=== PATIENT | male | born 1945 | race Caucasian/White ===

== ENCOUNTER → 2017-06-23 | Outpatient (CLI) | payer MEDICARE, BC ==
[2017-06-23 12:11] LABS: Basophils # (A) 0.1 k/uL (0-0.2); Basophils % (A) 1 %; Eosinophils # (A) 0.4 k/uL (0-0.7); Eosinophils % (A) 6 %; HCT 42.1 % (39.0-53.0); HGB 14.3 gm/dL (13.0-17.5); Lymphocytes # (A) 2.2 k/uL (1.0-4.8); Lymphocytes % (A) 35 %; MCH 29.9 pg (25.0-35.0); MCHC 33.9 g/dL (31.0-37.0); MCV 88.2 fL (80.0-100.0); Mean Platelet Volume 7.1; Monocytes # (A) 0.3 k/uL (0-1.0); Monocytes % (A) 5 %; Neutrophils # (A) 3.3 k/uL (1.3-7.7); Neutrophils % (A) 52 %; Platelet Count 259 k/uL (150-450); RBC 4.77 m/uL (4.30-5.90); RDW 13.1 % (11.5-15.5); WBC 6.4 k/uL (3.8-10.6)
[2017-06-23 12:18] LABS: Partial Thromboplastin Time 22.7 sec (22.0-30.0); Prothrombin Time 10.1 sec (9.0-12.0)
--- NOTE | 2017-06-23 12:24 | XR ---
EXAMINATION TYPE: XR chest 2V DATE OF EXAM: 06/23/2017 COMPARISON: NONE HISTORY: Preoperative for surgery. TECHNIQUE: Frontal and lateral views of the chest are obtained. FINDINGS: There is no focal air space opacity, pleural effusion, or pneumothorax seen. The cardiac silhouette size is within normal limits with atherosclerotic aorta. The osseous structures are inta ct. IMPRESSION: No acute pulmonary process.
[2017-06-23 12:43] LABS: Anion Gap 13 mmol/L; Appearance,Urine Clear (Clear); Bilirubin,Urine Negative (Negative); Blood Urea Nitrogen 21 mg/dL (9-20); Blood,Urine Negative (Negative); Calcium 9.7 mg/dL (8.4-10.2); Carbon Dioxide 29 mmol/L (22-30); Chloride 103 mmol/L (98-107); Color,Urine Yellow; Glucose 114 mg/dL (74-99); Glucose,Urine (UA) Negative (Negative); Ketones,Urine Negative (Negative); Leukocyte Esterase,Urine Negative (Negative); Nitrite,Urine Negative (Negative); Potassium 4.4 mmol/L (3.5-5.1); Protein,Urine Trace (Negative); Sodium 145 mmol/L (137-145); Specific Gravity,Urine 1.018 (1.001-1.035)
== END | disposition home or self-care (01) ==
LOC: LABPAT 11:36
PROVIDERS: ATTEND Orthopaedic Surgery Orthopaedic Surgery of the Spine
DX: Z01.818 Encounter for other preprocedural examination (principal); Z01.812 Encounter for preprocedural laboratory examination; M50.01 Cervical disc disorder with myelopathy, high cervical region
CPT/HCPCS: 36415; 71046; 80048; 81003; 85025; 85610; 85730; 86850; 86900; 86901

== ENCOUNTER 2017-07-02 10:52 | Inpatient (IN) | payer MEDICARE, BC ==
[2017-06-25 12:46] VITALS: BMI 33.6
[~2017-07-02 10:52] MED LIST: BACITRACIN 50,000 UNIT, POLYMYXIN B 500,000 UNIT in SODIUM CHLORIDE 0.9% IRRIGATIO 1,00... IRRIGATION ONE; DEXAMETHASONE SOD PHOSPHATE 10 MG/ML 1 ML VIAL IV ONE; HYDROmorphone 0.5 MG/0.5 ML SYRINGE IVP PRN; LIDOCAINE 1% 20 ML VIAL (10MG/ML) FOR IV START INTRADERMA PRN; MIDAZOLAM 2 MG/2 ML VIAL IV PRN; MORPHINE SULFATE 2 MG/ML SYRINGE IV PRN; ONDANSETRON 4 MG/2 ML VIAL IVP ONE; SCOPOLAMINE 1.5MG/72HR PATCH TRANSDERM ONE; ceFAZolin IN SWFI 2 GM/20 ML SYRINGE IVP ONE
[2017-07-02] MEDS: LACTATED RINGERS 1,000 ML IV SCH (11:59)
[2017-07-02 12:06] LABS: Glucose,Whole Blood 92 mg/dL (75-99)
[2017-07-02] MEDS ORDERED: GLYCOPYRROLATE 0.2 MG/ML 2 ML VIAL ONE (14:23)
[2017-07-02] MEDS ORDERED: MIDAZOLAM 2 MG/2 ML VIAL ONE (14:23)
[2017-07-02] MEDS ORDERED: ePHEDrine SULFATE/0.9% NACL/PF 50 MG/5 ML SYRINGE IV ONE (14:23)
[2017-07-02] MEDS ORDERED: DEXAMETHASONE SOD PHOS (MDV) 100 MG/10 ML VIAL ONE (14:23)
[2017-07-02] MEDS ORDERED: SUCCINYLCHOLINE CHLORIDE 100 MG/5 ML SYR IV ONE (14:23)
[2017-07-02] MEDS ORDERED: fentaNYL (PF) 50 MCG/ML 2 ML AMP ONE (14:23)
[2017-07-02] MEDS ORDERED: PROPOFOL 10 MG/ML 20 ML VIAL IV ONE (14:23)
[2017-07-02] MEDS ORDERED: LIDOCAINE 1% INJ 10MG/ML (20 ML MDV) ONE (14:23)
[2017-07-02] MEDS ORDERED: GELATIN SPONGE,ABSORB (LARGE) 1 EACH SPONGE MISCELLANE ONE (15:30)
[2017-07-02] MEDS ORDERED: BUPIVACAINE (PF) 0.25% 30 ML VIAL SQ ONE (15:31)
[2017-07-02] MEDS ORDERED: THROMBIN (BOVINE) 5,000 UNIT VIAL TOPICAL ONE (15:32)
--- NOTE | 2017-07-02 15:38 | XR ---
EXAMINATION TYPE: XR cervical spine 1V DATE OF EXAM: 07/02/2017 COMPARISON: NONE HISTORY: 72-year-old male needle placement in the OR TECHNIQUE: Single crosstable portable lateral view FINDINGS: The patient is intubated. Surgical instrument with needle projecting at the anterior C5-C6 disc inter space. IMPRESSION: Surgical needle at the anterior C5-C6 level.
--- NOTE | 2017-07-02 16:34 | XR ---
EXAMINATION TYPE: XR cervical spine 1V DATE OF EXAM: 07/02/2017 COMPARISON: Cervical spine x-ray earlier today. HISTORY: Hardware placement for neck surgery. TECHNIQUE: Portable crosstable lateral view of cervical spine is obtained intraoperatively. FINDINGS: There is partial visualization of the anterior fusion plate C5-C6 and likely extending to C 7 level. Inferior visualization suboptimal due to artifact from overlying shoulders. There is hyperde nse disc material C5-C6 level. Anterior endotracheal tube is partially imaged. IMPRESSION: As above.
[2017-07-02] MEDS ORDERED: HYDROmorphone 0.5 MG/0.5 ML SYRINGE IVP PRN (16:36)
[2017-07-02] MEDS ORDERED: DIAZEPAM 5 MG TAB PO PRN (16:36)
[2017-07-02] MEDS ORDERED: MAGNESIUM HYDROXIDE 2,400 MG/10 ML CUP PO PRN (16:36)
[2017-07-02] MEDS ORDERED: HYDROcodone/APAP 5-325MG 1 EACH TAB PO PRN (16:36)
[2017-07-02] MEDS ORDERED: ONDANSETRON 4 MG/2 ML VIAL IVP PRN (16:36)
[2017-07-02] MEDS ORDERED: BENZOCAINE/MENTHOL LOZENG 1 EACH LOZENGE MUCOUS MEM PRN (16:36)
--- NOTE | 2017-07-02 16:44 | P.OP ---
Date of Procedure: 07/02/17 Preoperative Diagnosis: Cervical myelopathy, myelomalacia, severe cervical stenosis C5 6 C6 7, severe degenerative disc disease C5 6 C6 7, cervical osteophytes, neck pain, left upper extremity radiculopathy, left upper extremity weakness, myeloradiculopathy Postoperative Diagnosis: Same Anesthesia: GETA Pathology: none sent Condition: stable Disposition: PACU Description of Procedure: BRIEF OPERATIVE NOTE Preoperative Diagnosis:Cervical myelopathy, myelomalacia, severe cervical stenosis C5 6 C6 7, severe degenerative disc disease C5 6 C6 7, cervical osteophytes, neck pain, left upper extremity radiculopathy, left upper extremity weakness, myeloradiculopathy Postoperative Diagnosis: Same Procedure: Anterior cervical decompression with discectomy and fusion C5 6 C6 7 Placement of interbody graft C5 6 C6 7 Application of anterior cervical plate C5 6 7 Removal of cervical osteophytes Surgeon: Dr. Perkins Book Sewer: Morro Ayoub is present throughout the entire the case persistence during positioning, dissection, exposure, visualization, and all crucial elements of the case as well as closure. Anesthesia: General anesthesia per Dr. Ervin Estimated blood loss: Approximately 50 mL Complications: None apparent Components implanted: K2M [place] anterior cervical plate system with Vikos interbody allograft bone graft and 1 mL of DBX bone putty Disposition: To recovery room in good stable condition. OPERATIVE INDICATIONS The patient has had long-standing issues in their neck and upper extremities. He is found have severe cervical stenosis with evidence of cervical myelopathy. His myelomalacia behind C5 6 and C6 7 with severe stenosis and degenerative disc disease which correlated well with his neck and upper extremity symptoms and his myelopathic symptoms. Patient was having worsening despite conservative treatment who is having increasing symptoms. The patient has been through conservative treatment. We discussed various treatment options including surgery, and the patient wishes to proceed with surgery We discussed the risk, patient's alternatives and benefits of surgery including but not limited to, risk of bleeding risk of infection, risk of need for further surgery , risk of decreased, loss of motion, muscle function, malunion nonunion, hardware failure, nerve damage, paralysis, heart attack, and . OPERATIVE SUMMARY After discussing all the risks, patient alternatives and benefits at length, the patient elected to proceed with surgical intervention, signed informed consent, and presented for their procedure. The patient was seen and examined in the preoperative holding area and the surgical site was marked. The patient was given antibiotics and brought to the operating room. The patient was positioned on the operating room table in a supine position being careful to pad any bony prominences and pressure points. The patient was sedated and intubated by anesthesia in standard fashion. Once the airway and C- spine were stabilized the patient's arms were padded and tucked at her side, with her shoulders gently taped. The head was placed in a donut pad with the neck in good neutral alignment and position. We were careful to maintain the patient's cervical spine and good neutral alignment and position throughout. The patient was prepped and draped in a normal standard fashion. An appropriate timeout and keystone protocol performed. We were able to proceed with the surgery. The local wound area was infiltrated with local anesthetic. An incision was made transversely approximately 2-1/2 cm over the appropriate levels at C6. Dissection was taken down subcutaneously to the level of the platysma which was split in line with its fibers. Dissection was taken with a carotid approach, with the trachea and esophagus medial and the carotid sheath laterally. We dissected down to the anterior surface of the vertebral bodies. Intraoperative x-ray was taken which showed a marker at the appropriate level at C5 6. With the appropriate level positively confirmed, we were able to proceed with discectomy at the appropriate levels at C5 6 and C6 7. All of the operative levels were exposed appropriately. The patient had all their twitches back, and there was no evidence of recurrent laryngeal issue. The wound was copiously irrigated and suctioned dry as had been done periodically throughout the case. At the appropriate level/levels, I established an annulotomy with an 11 blade scalpel. A complete discectomy was performed with a combination of pituitary rongeurs, curettes, a high-speed bur, and Kerrison rongeurs. The posterior longitudinal ligament was taken down as were any posterior osteophytes. Note was made of obvious severe stenosis centrally in the bilateral neural foramen. There were posterior osteophytes which had been taken down and significant disc protrusion and herniation which was removed as well. This gave good central and bilateral foraminal decompression. There is no evidence of any dural tear or leak. The endplates were prepared with a high- speed bur. With the endplates in good parallel position, I was able to size for the appropriate size interbody graft. The wound was irrigated and suctioned dry the graft was prepared and malleted into position. It had good alignment and position with the anterior surface flush with the anterior surface of the vertebral bodies. This was done similarly the appropriate levels first at C5 6 and then at C6 7. With the grafts intact, I was able to measure and contour and appropriate sized plate at C5 6 and 7. The plate was positioned at the midline over the appropriate levels. Screw holes were established with a hand drill and drill guide. Screws were placed in good alignment and position with excellent bony purchase. They were seated under the locking device. The construct was checked and found to be stable. Intraoperative x-ray was taken which showed good alignment and position of the implants at the appropriate levels of C5 6 and 7. There was no evidence of any dural tear or leak. Good hemostasis was maintained. The wound was copiously irrigated and suctioned dry as had been done periodically throughout the case. The platysma was closed with absorbable suture. The subcutaneous tissue was closed. The subcuticular tissue was closed with absorbable suture. The wound was cleaned and dried and dressed appropriately. A soft cervical collar was placed appropriately. The patient was woken up by anesthesia, extubated, transferred back gently to their hospital bed and brought to the recovery room in good stable condition. The patient will be admitted to the hospital for appropriate postoperative care , medical management and monitoring. Given that the patient's severe symptoms as well as his advanced age and myelopathic symptoms with some difficulty with his mobilization ambulation I think that he needs full admittance into the hospital overnight tonight. We will continue to follow them closely about the postoperative course.
[2017-07-02 21:41] VITALS: RESP 16
[2017-07-02] MEDS: ceFAZolin IN SWFI 2 GM/20 ML SYRINGE IVP SCH (21:46)
[2017-07-02] MEDS: HYDROcodone/APAP 7.5-325MG 1 EACH TAB PO PRN (21:46)
[2017-07-03] MEDS: hydrALAZINE HCL 25 MG TAB PO SCH ×2 (03:58→09:51)
[2017-07-03] MEDS: HYDROcodone/APAP 7.5-325MG 1 EACH TAB PO PRN ×2 (04:02→09:53)
[2017-07-03] MEDS: ceFAZolin IN SWFI 2 GM/20 ML SYRINGE IVP SCH (06:01)
[2017-07-03] MEDS ORDERED: PANTOPRAZOLE 40 MG TABLET PO SCH (07:30)
--- NOTE | 2017-07-03 08:13 | P.DS ---
Providers Date of admission: 07/02/17 11:37 Attending physician: Daylin Perkins Primary care physician: Aashish Deshpande MD Hospital Course: The patient presented on the day of admission as per his operative note. He underwent anterior cervical discectomy and fusion at C5 6 and C6 7 for his cervical myelopathy with myelomalacia and severe cervical stenosis with upper extremity flap the and weakness. Patient feels he is doing very well with his surgery. He is very impressed with how well his arm is doing and he says this is the first time that he didn't have to sleep with a glove on in years. He is able to have a soft diet at bedside today in his ambulatory around the [facility]. He is very happy with his results thus far. Physical Exam The incision site is clean dry and intact. There is no erythema no drainage. There is no purulence no evidence of infection. There is no active drainage. His neck is soft and supple. His upper extremities may have some increased strength at the left upper extremity. Abdomen soft and nontender. Chest has good excursion with deep inspiration and expiration. The patient has active and passive range of motion intact at the upper and lower extremities. 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 Hospital Course Postoperative day #1 status post anterior cervical discectomy and fusion C5 6 C6 7 for cervical myelopathy with myelomalacia and severe cervical stenosis and upper extremity radiculopathy and weakness. The patient already has had some improvement and seems to be making progress quite well. He is happy with his results thus far. The patient has been making good progress postoperatively. They have completed the prophylactic antibiotics without any signs or symptoms of infection. The patient has been able to advance their diet, and is tolerating diet adequately. The pain was initially controlled with IV medications and is now controlled appropriately with oral medications. The patient has been able to increase their mobilization. The patient has progressed appropriately. I think they are in good stable condition for discharge today. They will be sent home with appropriate prescriptions. I answered their questions to the best of my ability in a language that they can understand and they are agreeable with the plan. They will follow up as directed in approximately 2 weeks or sooner if having any problems. Patient Condition at Discharge: Good Plan - Discharge Summary Discharge Rx Participant: No New Discharge Prescriptions: No Action Lisinopril [Zestril] 20 mg PO DAILY Ibuprofen 800 mg PO Q6H PRN PRN Reason: Pain Aspirin 81 mg PO DAILY hydrALAZINE HCL [Apresoline] 25 mg PO BID clonazePAM [KlonoPIN] 1 mg PO DAILY amLODIPine BESYLATE [Norvasc] 5 mg PO DAILY Omeprazole [PriLOSEC] 20 mg PO AC-BRKFST Multivitamin [Men's Multi-Vitamin] 1 tab PO DAILY HYDROcodone/APAP 7.5-325MG [[place] 7.5-325] 1 tab PO Q6HR PRN PRN Reason: Pain Fluticasone Nasal [place] [Flonase Nasal [place]] 2 sprays EA NOSTRIL DAILY DULoxetine HCL [Cymbalta] 30 mg PO DAILY Atorvastatin [Lipitor] 20 mg PO DAILY Hydrochlorothiazide [Hydrodiuril] 12.5 mg PO DAILY Discharge Medication List Aspirin 81 mg PO DAILY 06/25/17 [History] Atorvastatin [Lipitor] 20 mg PO DAILY 06/25/17 [History] DULoxetine HCL [Cymbalta] 30 mg PO DAILY 06/25/17 [History] Fluticasone Nasal [place] [Flonase Nasal [place]] 2 sprays EA NOSTRIL DAILY [History] HYDROcodone/APAP 7.5-325MG [[place] 7.5-325] 1 tab PO Q6HR PRN 06/25/17 [History] Hydrochlorothiazide [Hydrodiuril] 12.5 mg PO DAILY 06/25/17 [History] Ibuprofen 800 mg PO Q6H PRN 06/25/17 [History] Lisinopril [Zestril] 20 mg PO DAILY 06/25/17 [History] Multivitamin [Men's Multi-Vitamin] 1 tab PO DAILY 06/25/17 [History] Omeprazole [PriLOSEC] 20 mg PO AC-BRKFST 06/25/17 [History] amLODIPine BESYLATE [Norvasc] 5 mg PO DAILY 06/25/17 [History] clonazePAM [KlonoPIN] 1 mg PO DAILY 06/25/17 [History] hydrALAZINE HCL [Apresoline] 25 mg PO BID 06/25/17 [History] Follow up Appointment(s)/Referral(s): Pasia,E Yuan, DO [Doctor of Osteopathic Medicine] - 2 Weeks Activity/Diet/Wound Care/Special Instructions: keep site clean May shower with waterproof Tegaderm intact. On Friday May remove dressing and then may shower with area uncovered believe Steri-Strips intact and allow them to fray off on their own. Do not soak in a tub. May ambulate to tolerance. No heavy or rigorous activity. No repetitive bending twisting or lifting. No overhead work. Discharge Disposition: HOME SELF-CARE
[2017-07-03] MEDS ORDERED: ATORVASTATIN 20 MG TAB PO SCH (09:00)
[2017-07-03] MEDS ORDERED: DULoxetine HCL 30 MG CAPSULE.DR PO SCH (09:00)
[2017-07-03] MEDS ORDERED: ASPIRIN 81 MG PO SCH (09:00)
[2017-07-03] MEDS ORDERED: HYDROCHLOROTHIAZIDE 12.5 MG CAP PO SCH (09:00)
[2017-07-03] MEDS ORDERED: FLUTICASONE 50MCG/SPRAY NASAL 16GM EA NOSTRIL SCH (09:00)
[2017-07-03] MEDS ORDERED: clonazePAM 1 MG TAB PO SCH (09:00)
[2017-07-03] MEDS ORDERED: amLODIPine 5 MG TAB PO SCH (09:00)
[2017-07-03] MEDS ORDERED: LISINOPRIL 20 MG TAB PO SCH (09:00)
[2017-07-03] MEDS ORDERED: SENNOSIDES-DOCUSATE SODIUM 1 EACH TAB PO SCH ×2 (09:00)
[2017-07-03] MEDS: SODIUM CHLORIDE 0.9% 1,000 ML IV SCH (09:44)
[2017-07-03] MEDS: LACTATED RINGERS 1,000 ML IV SCH (09:45)
[2017-07-03 10:19] VITALS: BP 115/71; PULSE 75; TEMP 97.8
[2017-07-03] MEDS ORDERED: MULTIVITAMINS, THERA 1 EACH TAB PO SCH (12:00)
== END 2017-07-03 10:15 | disposition home or self-care (01) | DRG 472 ==
LOC: 2ORMAIN 11:37 → 3SUR 16:54
PROVIDERS: ADMIT Orthopaedic Surgery Orthopaedic Surgery of the Spine; ATTEND Orthopaedic Surgery Orthopaedic Surgery of the Spine
PROC: 0RT30ZZ Resection of Cervical Vertebral Disc, Open Approach (ICD-10-PCS; principal; 2017-07-02 11:35)
PROC: 0RG20A0 Fusion of 2 or more Cervical Vertebral Joints with Interbody Fusion Device, Anterior Approach, Anterior Column, Open Approach (ICD-10-PCS; principal; 2017-07-02 11:35)
PROC: 0PB30ZZ Excision of Cervical Vertebra, Open Approach (ICD-10-PCS; principal; 2017-07-02 11:35)
DX: M50.022 Cervical disc disorder at C5-C6 level with myelopathy (principal); G95.89 Other specified diseases of spinal cord; M50.122 Cervical disc disorder at C5-C6 level with radiculopathy; M25.78 Osteophyte, vertebrae; Z79.1 Long term (current) use of non-steroidal anti-inflammatories (NSAID); Z79.82 Long term (current) use of aspirin; Z79.899 Other long term (current) drug therapy; I10 Essential (primary) hypertension; K21.9 Gastro-esophageal reflux disease without esophagitis; Z83.3 Family history of diabetes mellitus; Z82.49 Family history of ischemic heart disease and other diseases of the circulatory system; Z87.891 Personal history of nicotine dependence; E78.5 Hyperlipidemia, unspecified
CPT/HCPCS: 72020; 86850; 86900; 86901; 94760

== ENCOUNTER → 2017-12-02 | Outpatient (CLI) | payer MEDICARE, BC ==
[2017-12-02 12:25] LABS: Basophils # (A) 0.1 k/uL (0-0.2); Basophils % (A) 1 %; Eosinophils # (A) 0.4 k/uL (0-0.7); Eosinophils % (A) 6 %; HCT 42.5 % (39.0-53.0); Lymphocytes # (A) 2.3 k/uL (1.0-4.8); Lymphocytes % (A) 34 %; MCV 87.8 fL (80.0-100.0); Mean Platelet Volume 6.8; Monocytes # (A) 0.4 k/uL (0-1.0); Monocytes % (A) 6 %; Neutrophils # (A) 3.4 k/uL (1.3-7.7); Neutrophils % (A) 50 %; Platelet Count 239 k/uL (150-450); RBC 4.84 m/uL (4.30-5.90); RDW 13.5 % (11.5-15.5); WBC 6.7 k/uL (3.8-10.6)
[2017-12-02 12:29] LABS: Appearance,Urine Clear (Clear); Bilirubin,Urine Negative (Negative); Blood,Urine Negative (Negative); Color,Urine Yellow; Glucose,Urine (UA) Negative (Negative); Ketones,Urine Negative (Negative); Leukocyte Esterase,Urine Negative (Negative); Nitrite,Urine Negative (Negative); Protein,Urine Negative (Negative); Specific Gravity,Urine 1.018 (1.001-1.035)
[2017-12-02 12:47] LABS: INR 1.1 (<1.2); Partial Thromboplastin Time 23.3 sec (22.0-30.0); Prothrombin Time 10.3 sec (9.0-12.0)
[2017-12-02 12:56] LABS: Calcium 9.6 mg/dL (8.4-10.2); Potassium 4.1 mmol/L (3.5-5.1)
--- NOTE | 2017-12-02 14:50 | XR ---
EXAMINATION TYPE: XR chest 2V DATE OF EXAM: 12/02/2017 COMPARISON: 06/23/2017 HISTORY: Preoperative evaluation. TECHNIQUE: Frontal and lateral views of the chest are obtained. FINDINGS: There is no focal air space opacity, pleural effusion, or pneumothorax seen. The cardiac silhouette size is mildly enlarged. There is tortuosity descending thoracic aorta as seen on the prio r. The osseous structures are intact. Cervical fusion device is incidentally noted. IMPRESSION: No acute cardiopulmonary process.
== END ==
LOC: LABPAT 11:15
PROVIDERS: ATTEND Orthopaedic Surgery Orthopaedic Surgery of the Spine
DX: Z01.818 Encounter for other preprocedural examination (principal); Z01.812 Encounter for preprocedural laboratory examination; M48.061 Spinal stenosis, lumbar region without neurogenic claudication; M43.16 Spondylolisthesis, lumbar region; M47.9 Spondylosis, unspecified; Z51.81 Encounter for therapeutic drug level monitoring; Z79.01 Long term (current) use of anticoagulants
CPT/HCPCS: 36415; 71046; 80048; 81003; 85025; 85610; 85730; 87070

== ENCOUNTER 2017-12-10 06:04 | Inpatient (IN) | payer MEDICARE, BC ==
[2017-12-02 15:10] VITALS: BMI 34.0
[~2017-12-10 06:04] MED LIST changes: -HYDROmorphone 0.5 MG/0.5 ML SYRINGE IVP PRN; -LIDOCAINE 1% 20 ML VIAL (10MG/ML) FOR IV START INTRADERMA PRN; -MORPHINE SULFATE 2 MG/ML SYRINGE IV PRN
[2017-12-10 06:44] LABS: Glucose,Whole Blood 121 mg/dL (75-99)
[2017-12-10] MEDS: LACTATED RINGERS 1,000 ML IV SCH ×2 (06:53→17:45)
[2017-12-10] MEDS ORDERED: MIDAZOLAM 2 MG/2 ML VIAL ONE (07:36)
[2017-12-10] MEDS ORDERED: LIDOCAINE 1% INJ 10MG/ML (20 ML MDV) ONE (07:36)
[2017-12-10] MEDS ORDERED: ePHEDrine SULFATE/0.9% NACL/PF 50 MG/5 ML SYRINGE IV ONE (07:36)
[2017-12-10] MEDS ORDERED: SUCCINYLCHOLINE CHLORIDE VIAL 200 MG/10 ML VIAL IV ONE (07:36)
[2017-12-10] MEDS ORDERED: fentaNYL (PF) 50 MCG/ML 2 ML AMP ONE (07:36)
[2017-12-10] MEDS ORDERED: PHENYLEPHRINE-0.9% NACL SYG 1 MG/10 ML SYRINGE ONE (07:36)
[2017-12-10] MEDS ORDERED: PROPOFOL 10 MG/ML 20 ML VIAL IV ONE (07:36)
[2017-12-10] MEDS ORDERED: BUPIVACAINE-EPI 0.5%-1:200,000 10 ML VIAL SQ ONE ×2 (08:19)
[2017-12-10] MEDS ORDERED: GELATIN SPONGE,ABSORB (LARGE) 1 EACH SPONGE TOPICAL ONE (09:01)
[2017-12-10] MEDS ORDERED: THROMBIN (BOVINE) 5,000 UNIT VIAL TOPICAL ONE (09:02)
[2017-12-10] MEDS ORDERED: MAGNESIUM HYDROXIDE 2,400 MG/10 ML CUP PO PRN (10:39)
[2017-12-10] MEDS ORDERED: HYDROcodone/APAP 5-325MG 1 EACH TAB PO PRN (10:39)
[2017-12-10] MEDS ORDERED: ONDANSETRON 4 MG/2 ML VIAL IVP PRN (10:39)
[2017-12-10] MEDS ORDERED: BENZOCAINE/MENTHOL LOZENG 1 EACH LOZENGE MUCOUS MEM PRN (10:39)
[2017-12-10] MEDS ORDERED: HYDROmorphone 0.5 MG/0.5 ML SYRINGE IVP PRN (10:39)
[2017-12-10] MEDS ORDERED: clonazePAM 1 MG TAB PO PRN (10:43)
--- NOTE | 2017-12-10 10:51 | P.OP ---
Date of Procedure: 12/10/17 Preoperative Diagnosis: Spondylolisthesis L4 5 Severe spinal stenosis L4 5 Low back pain Lower extremity radiculopathy Degenerative disc disease Spondylolysis Lower extremity weakness Postoperative Diagnosis: Same Anesthesia: GETA Pathology: none sent Condition: stable Disposition: PACU Description of Procedure: DESCRIPTION OF PROCEDURE(S): BRIEF OPERATIVE NOTE Preoperative Diagnosis: Spondylolisthesis L4 5 Severe spinal stenosis L4 5 Low back pain Lower extremity radiculopathy Degenerative disc disease Spondylolysis Lower extremity weakness Postoperative Diagnosis: Procedure: Laminectomy and decompression L4 5 Minimally invasive Posterior lateral decompression and facet fusion L4 5 Minimally invasive Transforaminal lumbar interbody fusion for a 360 fusion L4 5 Discectomy for decompression L4 5 Placement of interbody graft L4 5 Harvesting of bone marrow aspirate via the pedicle of L4 and vertebral body Local autogenous bone grafting Use of Cell Saver Use of bone graft extenders Surgeon: Dr. Perkins Vice President Biostatistics: Morro Ayoub is present throughout the entire the case persistence during positioning, dissection, exposure, visualization, and all crucial elements of the case as well as closure. Anesthesia: General anesthesia per Dr. Rojo Estimated blood loss: Approximately 150 mL Complications: None apparent Components implanted: K2M minimally invasive [place] pedicle screw system with a [place] expandable 9-12 interbody cage and 1 osteo sponge and 10 mL of a BX bone fibers to supplemental local autogenous and bone marrow aspirate graft Disposition: To recovery room in good stable condition. OPERATIVE INDICATIONS The patient has had long-standing issues in their lower back and lower extremities. The patient has been through conservative treatment. He is found have a dynamic spondylolisthesis with severe spinal stenosis at L4 5 with significant facet arthrosis degenerative disc disease. These findings correlated very well with his low back and lower extremity symptoms with radiculopathy and weakness in his lower extremities. He had not had any them improvement despite aggressive conservative treatment and he was having worsening of his symptoms. We discussed various treatment options including surgery, and the patient wishes to proceed with surgery We discussed the risk, patient's alternatives and benefits of surgery including but not limited to, risk of bleeding risk of infection, risk of need for further surgery, risk of decreased, loss of motion, muscle function, malunion nonunion, hardware failure , nerve damage, paralysis, heart attack, blindness and . OPERATIVE SUMMARY After discussing all the risks, patient alternatives and benefits at length, the patient elected to proceed with surgical intervention, signed informed consent, and presented for their procedure. The patient was seen and examined in the preoperative holding area and the surgical site was marked. The patient was given antibiotics and brought to the operating room. The patient was sedated and intubated by anesthesia in standard fashion. The patient was positioned on to the operating room table in a prone position on the appropriate frame which was well-padded and well molded. We were careful to pad any bony prominences and pressure points. We were careful to maintain the patient's cervical spine and good neutral alignment and position throughout. The patient was prepped and draped in a normal standard fashion. An appropriate timeout and keystone protocol performed. We were able to proceed with the surgery. The local wound area was infiltrated with local anesthetic. I was able utilize C-arm guidance to establish appropriate position over the pedicles bilaterally at the appropriate levels at L4 5. With the appropriate levels confirmed was able to make small stab incisions over the appropriate pedicle sites bilaterally. Utilizing C-arm in his house able to establish a Jamshidi needle over the lateral aspect of the pedicle and advanced the trocar into the pedicle being careful not to breech superiorly inferiorly medially or laterally. Position was confirmed regularly with AP and lateral images on C- arm. I was able to establish the trocar into the pedicle appropriately into the posterior aspect of the vertebral body bilaterally at the appropriate levels. This was done at each of the pedicle positions and each of the vertebrae at L4 5. I lex up approximately 20 mL of bone marrow aspirate via the pedicle of L4 on the right area and this was saved for use later in the case in the graft portion. I was able place the guidewire into the trocar and into the vertebral body appropriately under C-arm guidance. Dissection was taken down over the wire to the appropriate starting position for the screw placed. The appropriate length screw was chosen, threaded over the guidewire and screwed appropriately into the pedicle and vertebral body under C-arm guidance in excellent alignment and position with good bony purchase. This is done at each of the screw sites at the appropriate levels. With the screws intact I extended the incision to connect the screw hole sites on the most symptomatic side on the right. I dissected down to establish access over the pars and lamina to the base of the spinous process. I was able to expose the facet joint. The capsule the facet was taken down and showed some facet arthrosis at the joint. I was able to use a combination of curettes and Kerrison rongeurs and a high-speed drill to take down the facet joint and do a facetectomy. Partial laminectomy was also performed. I was able get excellent foraminal decompression and central decompression with undermining across midline to perform a laminectomy centrally and contralaterally. As able get good central decompression. The ligamentum flavum was taken down to further decompress centrally and at bilateral neural foramen. I was able to expose the disc space and visualize the traversing nerve root. Note was made of some disc protrusion at the level causing further compression of the nerve root. I was able to establish a annulotomy at the appropriate level protecting soft tissue and neural structures. Note was made of some disc desiccation at the disc. I performed a complete discectomy with accommodation of curettes and rasps and scrapers. I was able get good endplate preparation at the disc space. I sized for the appropriate size interbody spacer protecting the soft tissue and neural structures. The wound was copiously irrigated and suctioned dry. There is no evidence of any dural tear or leak. I was able to pack the disc space with local autogenous bone graft as well as a small amount of bone graft which was also placed into the interbody cage itself. Protecting the soft tissue structures and neural structures I was able place the interbody cage in good alignment and good position with good fit and fill at the interbody space. His issues was confirmed with C-arm guidance. Good hemostasis maintained. There is no evidence of any dural tear or leak. The wound was irrigated and suctioned dry. With the hardware intact, intraoperative C-arm imaging was again taken which showed good alignment and position of the hardware at the appropriate levels at L4 5. We were then able to measure, contour and place the rods and appropriate hardware bilaterally. I was able to place capcrews, tighten them down, and torque them with the torque screwdriver appropriately. With this intact I was able to place the local autogenous bone graft with additional bone graft enhancer as necessary into the posterior lateral gutters over the decorticated transverse processes. The remainder of the bone graft was placed over the facet joint on the contralateral side after taking down the facet joint capsule. With the bone graft intact, a stable construct, and good decompression at the appropriate levels, we were able to proceed with closure. Good hemostasis was maintained. There is no evidence of dural tear or leak. The fascia was closed for a watertight closure. he subcuticular tissue was closed with absorbable suture. The wound was cleaned and dried and dressed with the appropriate dressing. The drapes were broken down. The patient was gently rolled back onto their hospital bed being careful to maintain their cervical spine and good neutral alignment and position. They were woken up by anesthesia, extubated, and brought to the recovery room in good stable condition. The patient will be admitted to the hospital for appropriate postoperative care , medical management and monitoring. We will continue to follow them closely about the postoperative course.
[2017-12-10] MEDS: HYDROmorphone 1 MG/ML 1 ML SYRINGE IVP PRN ×6 (11:02→22:48)
[2017-12-10] MEDS: SODIUM CHLORIDE 0.9% 1,000 ML IV SCH (12:09)
--- NOTE | 2017-12-10 14:27 | XR ---
Limited lumbar spine HISTORY: Minimal invasive lumbar fusion 2 intraoperative C-arm images document the procedure
--- NOTE | 2017-12-10 14:28 | FL ---
Fluoroscopy HISTORY: Lumbar fusion 1 minute 13 seconds fluoroscopy time supplied to the referring clinician. 2 intraoperative C-arm ramsse ges document the procedure. See dictated report from orthopedic surgery.
[2017-12-10] MEDS ORDERED: HYDROmorphone 1 MG/ML 1 ML SYRINGE IVP PRN (15:17)
[2017-12-10] MEDS: ceFAZolin IN SWFI 2 GM/20 ML SYRINGE IVP SCH ×2 (15:37→22:48)
--- NOTE | 2017-12-10 17:04 | P.CONS ---
History of Present Illness - Reason for Consult Consult date: 12/10/17 Medical management Requesting physician: Daylin Perkins - Chief Complaint Medical management after Laminectomy and decompression L45 - History of Present Illness 72 year old M presents to the hospital for elective back surgery. Patient reports a long history of back pain with radiation into his bilateral lower extremities. Most recent MRI Lspine from 10/2017 shows severe ventral and bilateral foraminal stenosis. He was scheduled for L4-5 minimally invasive posterior lateral decompression and fusion with transforaminal lumbar interbody fusion. He has underwent C5-6 and C6-7 anterior cervical decompression fusion in 2017. Patient was seen and examined post operatively. He was sleeping when I walked in his room. Patient got Dilaudid injection prior to interview. Patient reports 10 back pain after surgery. Pain lasts for 2 hours after Dilaudid injection before it returns. No bladder or bowel incontinence or saddle anesthesia. is at bedside. Review of Systems All systems: negative Past Medical History Past Medical History: GERD/Reflux, Hyperlipidemia, Hypertension, Osteoarthritis (OA), Sleep Apnea/CPAP/BIPAP Additional Past Medical History / Comment(s): no problems w/blood sugar since lost >100lbs- "watches diet now"-no rx, no cpap used, slight hiatal hernia, History of Any Multi-Drug Resistant Organisms: None Reported Past Surgical History: Bariatric Surgery, Heart Catheterization Additional Past Surgical History / Comment(s): gastric sleeve, cervical fusion and disectomy(screws), Past Anesthesia/Blood Transfusion Reactions: Family History of Problems w/ Anesthesia Additional Past Anesthesia/Blood Transfusion Reaction / Comm: mother- had time coming out Past Psychological History: Anxiety Smoking Status: Former smoker Past Alcohol Use History: None Reported Additional Past Alcohol Use History / Comment(s): quit smoking 1992, smoked 2- 3ppd from age of 16 Past Drug Use History: None Reported - Past Family History Sister(s) Family Medical History: Deep Vein Thrombosis (DVT) Medications and Allergies Home Medications Medication Instructions Recorded Confirmed Type Aspirin 81 mg PO DAILY 06/25/17 12/10/17 History Atorvastatin [Lipitor] 20 mg PO DAILY 06/25/17 12/10/17 History Fluticasone Nasal [place] [Flonase 2 sprays EA NOSTRIL DAILY 06/25/17 12/10/17 History Nasal [place]] HYDROcodone/APAP 7.5-325MG [[place] 1 tab PO TID PRN 06/25/17 12/10/17 History 7.5-325] Ibuprofen 800 mg PO TID PRN 06/25/17 12/10/17 History Multivitamin [Men's Multi-Vitamin] 1 tab PO DAILY 06/25/17 12/10/17 History Omeprazole [PriLOSEC] 20 mg PO AC-BRKFST 06/25/17 12/10/17 History clonazePAM [KlonoPIN] 1 - 1.5 mg PO TID PRN 06/25/17 12/10/17 History Lisinopril-Hctz 20-25 mg 2 tab PO DAILY 12/02/17 12/10/17 History [Zestoretic 20-25] Metoprolol Tartrate [Lopressor] 25 mg PO BID 12/02/17 12/10/17 History Sertraline [Zoloft] 100 mg PO DAILY 12/02/17 12/10/17 History amLODIPine [Norvasc] 10 mg PO DAILY 12/02/17 12/10/17 History Allergies Allergy/AdvReac Type Severity Reaction Status Date / Time No Known Allergies Allergy Verified 12/10/17 13:01 Physical Exam Vitals: Vital Signs Temp Pulse Pulse Resp BP Pulse Ox 12/10/17 13:00 57 L 16 132/82 98 12/10/17 12:45 59 L 16 134/82 97 12/10/17 12:30 62 16 128/80 98 12/10/17 12:15 63 16 143/82 98 12/10/17 12:00 60 16 138/88 95 12/10/17 11:45 98 F 62 16 132/85 95 12/10/17 11:34 62 16 138/74 98 12/10/17 11:16 62 16 121/73 98 12/10/17 11:03 58 L 16 148/80 98 12/10/17 10:45 60 16 130/71 98 12/10/17 10:37 98 F 66 16 136/76 98 12/10/17 06:30 98.5 F 51 L 16 153/88 97 Intake and Output 12/10/17 12/10/17 12/10/17 06:59 14:59 22:59 Intake Total 250 2100 Output Total 350 Balance 250 1750 Intake: IV 250 1950 Intake, IV Titration 150 Amount Sodium Chloride 0.9% 1, 150 000 ml @ 75 mls/hr IV . [id number] [facility] Rx#:[id number] Output: Urine 200 Estimated Blood Loss 150 Other: Weight 110.677 kg General: [non toxic], [no distress], [appears at stated age] Derm: [warm], [dry] Head: [atraumatic], [normocephalic], [symmetric] Eyes: [EOMI], [no lid lag], [anicteric sclera] Mouth: [no lip lesion], [mucus membranes moist] Cardiovascular: [S1S2 reg], [no murmur], [positive DP pulse bilateral] Lungs: [CTA bilateral], [no rhonchi, no rales] , [no accessory muscle use] Abdominal: [soft], [ nontender to palpation], [no guarding], [no appreciable organomegaly] Ext: [no gross muscle atrophy], [no edema], [no contractures] Neuro: [no focal neuro deficits] Psych: [Alert], [oriented], [appropriate affect] Results Labs: Abnormal Lab Results - Last 24 Hours (Table) 12/10/17 Range/Units 06:43 POC Glucose (mg/dL) 121 H (75-99) mg/dL Assessment and Plan Assessment: Assessment and Plan 1. Spinal stenosis: s/p laminectomy and decompression L4-5 POD 0. Cefazolin IV x 2 doses. Pain management with [place] PO and Dilaudid IV PRN. Neurochecks. FU PT /OT, Orthopedic Sx 2. Hypertension: BP 132/82. Continue Amlodipine 10 mg PO QD, Lisinopril-HCTZ 20- 25 2 tab PO QD, Metoprolol 25 mg PO BID. Monitor vitals, adjust medications as necessary. 3. ASCVD risk: Continue ASA 81 mg PO QD, Lipitor 20 mg PO QHS. 4. Depression: Stable. Continue Sertraline 100 mg PO QD. 5. DVT/GI Prophylaxis: Protonix 20 mg PO QD. SCD boots only.
[2017-12-10] MEDS: HYDROcodone/APAP 5-325MG 1 EACH TAB PO PRN ×2 (17:28→21:19)
[2017-12-10] MEDS: METOPROLOL TARTRATE 25 MG TAB PO SCH (21:18)
[2017-12-11] MEDS: SODIUM CHLORIDE 0.9% 1,000 ML IV SCH ×2 (00:41→15:05)
[2017-12-11] MEDS: HYDROcodone/APAP 5-325MG 1 EACH TAB PO PRN ×6 (01:47→23:35)
[2017-12-11] MEDS: HYDROmorphone 1 MG/ML 1 ML SYRINGE IVP PRN ×7 (03:19→23:06)
[2017-12-11] MEDS: MULTIVITAMINS, THERA 1 EACH TAB PO SCH (08:15)
[2017-12-11] MEDS: SERTRALINE 100 MG TAB PO SCH (08:16)
[2017-12-11] MEDS: METOPROLOL TARTRATE 25 MG TAB PO SCH ×2 (08:16→20:14)
[2017-12-11] MEDS: ATORVASTATIN 20 MG TAB PO SCH (08:16)
[2017-12-11] MEDS: SENNOSIDES-DOCUSATE SODIUM 1 EACH TAB PO SCH (08:16)
[2017-12-11] MEDS: PANTOPRAZOLE 40 MG TABLET PO SCH (08:16)
[2017-12-11] MEDS: ASPIRIN 81 MG PO SCH (08:16)
[2017-12-11] MEDS: amLODIPine 10 MG TAB PO SCH (08:16)
--- NOTE | 2017-12-11 08:23 | P.PN ---
Progress Note - Text Progress Note Date: 12/11/17 Postoperative day #1 Patient is seen and examined today at bedside. The patient has some pain around the surgical site as expected. Pain is being controlled with medication. He has been up out of bed is ambulatory in his room. He is having pain at his lower back which is expected. He feels his legs are doing well. Physical Exam Afebrile with stable vital signs Abdomen is soft nontender. Chest has good excursion deep and space expiration The incision site is clean dry and intact. No erythema there is no purulence. The Tegaderm at his back is intact and sealed. There is no active drainage. There is no active bleeding. Extremities have not had neurologic change from prior to surgery. He has sustained dorsal flexion plantar flexion and EHL intact. Calves and thighs were soft nontender without evidence of DVT. Assessment/Plan Postoperative day 1 status post minimally invasive decompression and fusion L4 5 for his severe stenosis with spondylolisthesis and lower extremity radiculopathy Patient is progressing as expected from the surgery. His back pain has been controlled with oral and IV medications he is continue to need IV medication this morning but hopefully he will be able to wean that down to have adequate control with oral medications for possible discharge home Friday or Friday We will continue to increase the patient's mobilization with therapy. We will continue pain control with oral or IV medications. We'll continue to follow patient closely.
[2017-12-11] MEDS: FLUTICASONE 50MCG/SPRAY NASAL 16GM EA NOSTRIL SCH (08:24)
[2017-12-11] MEDS: LISINOPRIL-HCTZ 20-25 MG 1 EACH TAB PO SCH (08:25)
[2017-12-11 08:38] LABS: Anion Gap 6 mmol/L; Blood Urea Nitrogen 18 mg/dL (9-20); Calcium 8.6 mg/dL (8.4-10.2); Carbon Dioxide 30 mmol/L (22-30); Chloride 102 mmol/L (98-107); Glucose 107 mg/dL (74-99); Potassium 3.3 mmol/L (3.5-5.1); Sodium 138 mmol/L (137-145)
[2017-12-11 08:39] LABS: Basophils % (A) 0 %; Eosinophils # (A) 0.1 k/uL (0-0.7); Eosinophils % (A) 1 %; HCT 32.6 % (39.0-53.0); Lymphocytes # (A) 1.5 k/uL (1.0-4.8); Lymphocytes % (A) 18 %; MCH 29.7 pg (25.0-35.0); MCHC 33.5 g/dL (31.0-37.0); MCV 88.4 fL (80.0-100.0); Mean Platelet Volume 6.8; Monocytes # (A) 0.5 k/uL (0-1.0); Monocytes % (A) 6 %; Neutrophils % (A) 74 %; Platelet Count 174 k/uL (150-450); RBC 3.69 m/uL (4.30-5.90); RDW 13.7 % (11.5-15.5); WBC 8.2 k/uL (3.8-10.6)
[2017-12-11 08:47] LABS: HGB 10.9 gm/dL (13.0-17.5)
[2017-12-11] MEDS ORDERED: POTASSIUM CHLORIDE ER 20 MEQ TAB.ER PO STA (10:35)
--- NOTE | 2017-12-11 11:13 | P.PN ---
Subjective Progress Note Date: 12/11/17 Principal diagnosis: Medical management Patient was seen and examined. No acute events overnight. Patient complains of back pain, 10/ in severity. Pain is decreased with a combination of Dilaudid and [place]. No bowel movement yet. He is pending PT evaluation. Possible DC by ortho on Friday or Friday. Objective - Vital Signs Vital signs: Vital Signs Temp 98.0 F 12/11/17 08:00 Pulse 76 12/11/17 10:20 Resp 16 12/11/17 10:20 BP 122/70 12/11/17 08:00 Pulse Ox 95 12/11/17 07:00 Intake & Output 12/10/17 12/11/17 12/11/17 18:59 06:59 18:59 Intake Total 2100 780 Output Total 350 400 Balance 1750 380 Weight 110.677 kg Intake: IV 1950 Intake, IV Titration 150 300 Amount Sodium Chloride 0.9% 1, 150 300 000 ml @ 75 mls/hr IV . [id number] [facility] Rx#:[id number] Oral 480 Output: Urine 200 400 Estimated Blood Loss 150 Other: Voiding Method Toilet Urinal # Voids 2 - Exam General: [non toxic], [no distress], [appears at stated age] Derm: [warm], [dry] Head: [atraumatic], [normocephalic], [symmetric] Eyes: [EOMI], [no lid lag], [anicteric sclera] Mouth: [no lip lesion], [mucus membranes moist] Cardiovascular: [S1S2 reg], [no murmur], [positive DP pulse bilateral] Lungs: [CTA bilateral], [no rhonchi, no rales] , [no accessory muscle use] Abdominal: [soft], [ nontender to palpation], [no guarding], [no appreciable organomegaly] Ext: [no gross muscle atrophy], [no edema], [no contractures] Neuro: [no focal neuro deficits] Psych: [Alert], [oriented], [appropriate affect] - Labs CBC & Chem 7: 12/11/17 07:21 12/11/17 07:21 Labs: Abnormal Lab Results - Last 24 Hours (Table) 12/11/17 12/11/17 Range/Units 07:21 07:21 RBC 3.69 L (4.30-5.90) m/uL Hgb 10.9 L D (13.0-17.5) gm/dL Hct 32.6 L (39.0-53.0) % Potassium 3.3 L (3.5-5.1) mmol/L Glucose 107 H (74-99) mg/dL Assessment and Plan Assessment: Assessment and Plan 1. Spinal stenosis: s/p laminectomy and decompression L4-5 POD 1. Cefazolin IV x 2 doses. Pain management with [place] PO and Dilaudid IV PRN. Neurochecks. FU PT /OT, Orthopedic Sx 2. Hypertension: BP 122/70. Continue Amlodipine 10 mg PO QD, Lisinopril-HCTZ 20- 25 2 tab PO QD, Metoprolol 25 mg PO BID. Monitor vitals, adjust medications as necessary. 3. ASCVD risk: Continue ASA 81 mg PO QD, Lipitor 20 mg PO QHS. 4. Depression: Stable. Continue Sertraline 100 mg PO QD. 5. DVT/GI Prophylaxis: Protonix 20 mg PO QD. SCD boots only. Patient to be evaluated by PT and OT. Pain control with Dilaudid and [place] PRN. Likely DC tomorrow or Friday per Orthopedic Sx.
[2017-12-11] MEDS ORDERED: CALCIUM CARBONATE 500 MG CHEWABLE PO PRN (11:36)
[2017-12-11] MEDS: LACTATED RINGERS 1,000 ML IV SCH (15:05)
[2017-12-12] MEDS: SODIUM CHLORIDE 0.9% 1,000 ML IV SCH ×2 (01:31→17:45)
[2017-12-12] MEDS: HYDROmorphone 1 MG/ML 1 ML SYRINGE IVP PRN ×2 (02:09→06:04)
[2017-12-12] MEDS: HYDROcodone/APAP 5-325MG 1 EACH TAB PO PRN ×2 (03:50→08:02)
[2017-12-12 07:00] VITALS: RESP 16
[2017-12-12] MEDS: PANTOPRAZOLE 40 MG TABLET PO SCH (08:01)
[2017-12-12] MEDS: ATORVASTATIN 20 MG TAB PO SCH (08:02)
[2017-12-12] MEDS: SERTRALINE 100 MG TAB PO SCH (08:02)
[2017-12-12] MEDS: MULTIVITAMINS, THERA 1 EACH TAB PO SCH (08:02)
[2017-12-12] MEDS: SENNOSIDES-DOCUSATE SODIUM 1 EACH TAB PO SCH (08:02)
[2017-12-12] MEDS: amLODIPine 10 MG TAB PO SCH (08:02)
[2017-12-12] MEDS: ASPIRIN 81 MG PO SCH (08:02)
[2017-12-12] MEDS: METOPROLOL TARTRATE 25 MG TAB PO SCH ×2 (08:02→20:07)
[2017-12-12] MEDS: LISINOPRIL-HCTZ 20-25 MG 1 EACH TAB PO SCH (08:04)
[2017-12-12] MEDS: FLUTICASONE 50MCG/SPRAY NASAL 16GM EA NOSTRIL SCH (08:05)
--- NOTE | 2017-12-12 08:37 | P.PN ---
Progress Note - Text Progress Note Date: 12/12/17 Orthopedic Spine Patient is a pleasant 72-year-old male who is seen and examined at the bedside following posterior lateral decompression and fusion performed Friday. Patient states they are doing okay postsurgically. Overall he has had improvement of his lower extremity radiculopathy symptoms that were present prior to surgical intervention. He discontinued have significant pain at the surgical sites along with bilateral buttock pain. He states he has not been able to ambulate to the restroom or to the hallways without assistance. He is sitting in a bedside chair. He states he slept in the bedside chair last evening. He continues to require IV and oral narcotic pain medications for pain control. Currently does not complain of nausea, vomiting, fever, or chills. Patient states pain has been adequately controlled. Patient is eating and voiding freely without difficulty. Patient's medical history includes hypertension. Physical Exam Lumbar Fusion: Status post surgical day number 2 Patient is awake, alert, and oriented 3 Vital signs stable Good chest excursion with deep inspiration and expiration Abdomen soft nontender Dorsiflexion, plantarflexion, and extensor hallucis longus positive sustained bilaterally No signs or symptoms of DVT; no calf pain; pneumatic cuffs not currently intact bilateral lower extremities Dressing is dry and intact with some dried blood at the surgical sites without active drainage; no erythema, purulence, or signs of infection No significant pain with palpation over the surgical sites Neurovascularly intact bilaterally lower extremities Assessment: Status post L4-5 minimally invasive posterior lateral decompression fusion with transforaminal lumbar interbody fusion Low back pain Lumbar degenerative disc disease Lower extremity radiculopathy L4-5 spondylolisthesis History of hypertension Plan: 1. Ambulate as tolerated; work with Physical Therapy to increase mobilization 2. Continue pain control with IV and oral medications; will plan to wean IV narcotic medication in anticipation for discharge home as early as tomorrow, ; an "Opioid Start Talking" form has been signed by the patient and myself. A prescription for [place] 7.5 mg/325 mg 1-2 tabs every 6 hours as needed for pain, dispensed #56 has been printed, signed, and placed in the patient's chart. MAPS has been reviewed today, 12/12/2017, with an overdose of his score of 330. 3. Dressing to remain intact with Telfa and Tegaderm; dressing may be changed today prior to showering 4. Medical management can continue to manage patient for patient's other medical issues 5. We will continue to follow the patient closely; if patient's pain is able to be better controlled, we will plan for discharge home as early as tomorrow, 12/13/2017 6. Patient can follow-up with Morro Vilchis PA-C or Dr. Yuan Perkins at [facility] in 2-3 weeks following discharge
[2017-12-12] MEDS ORDERED: HYDROmorphone 1 MG/ML 1 ML SYRINGE IVP PRN ×2 (09:38→09:49)
--- NOTE | 2017-12-12 09:53 | P.PN ---
Subjective Progress Note Date: 12/12/17 Principal diagnosis: Medical management Patient was seen and examined. No acute events overnight. Patient reports being able to take shower this morning. He is to use the 60 mg of hydrocodone and 4 mg of hydromorphone over the past 24 hours. This is 110 mg of hydrocodone equivalent over the past 24 hours. PT working with patient to improve mobility. Seen by orthopedic surgery, probable discharge tomorrow. Objective - Vital Signs Vital signs: Vital Signs Temp 98.6 F 12/12/17 07:00 Pulse 56 L 12/12/17 07:00 Resp 16 12/12/17 07:00 BP 116/69 12/12/17 07:00 Pulse Ox 95 12/12/17 07:00 Intake & Output 12/11/17 12/12/17 12/12/17 18:59 06:59 18:59 Intake Total 1276 780 400 Balance 1276 780 400 Intake: Intake, IV Titration 600 Amount Sodium Chloride 0.9% 1, 600 000 ml @ 75 mls/hr IV . [id number] [facility] Rx#:[id number] Oral 476 780 400 Other 200 Other: Voiding Method Toilet Urinal # Voids 3 2 - Exam General: [non toxic], [no distress], [appears at stated age] Derm: [warm], [dry] Head: [atraumatic], [normocephalic], [symmetric] Eyes: [EOMI], [no lid lag], [anicteric sclera] Mouth: [no lip lesion], [mucus membranes moist] Cardiovascular: [S1S2 reg], [no murmur], [positive DP pulse bilateral] Lungs: [CTA bilateral], [no rhonchi, no rales] , [no accessory muscle use] Abdominal: [soft], [ nontender to palpation], [no guarding], [no appreciable organomegaly] Ext: [no gross muscle atrophy], [no edema], [no contractures] Neuro: [no focal neuro deficits] Psych: [Alert], [oriented], [appropriate affect] - Labs CBC & Chem 7: 12/11/17 07:21 12/11/17 07:21 Assessment and Plan Assessment: Assessment and Plan 1. Spinal stenosis: s/p laminectomy and decompression L4-5 POD 1. Cefazolin IV x 2 doses. Pain management with [place] 7.5mg 1-2 tabs PO Q6H and Dilaudid 0.5 mg IV Q4H PRN. Neurochecks. FU PT/OT, Orthopedic Sx 2. Hypertension: BP 116/69. Continue Amlodipine 10 mg PO QD, Lisinopril-HCTZ 20- 25 2 tab PO QD, Metoprolol 25 mg PO BID. Monitor vitals, adjust medications as necessary. 3. ASCVD risk: Continue ASA 81 mg PO QD, Lipitor 20 mg PO QHS. 4. Depression: Stable. Continue Sertraline 100 mg PO QD. 5. DVT/GI Prophylaxis: Protonix 20 mg PO QD. SCD boots only. Patient to continue working with PT and OT. Pain control with Dilaudid ( switched from Q3 to Q4) and [place] (increased from 5 to 7.5 mg) PRN. Attempt to cut down on IV Dilaudid use. Likely DC tomorrow per Orthopedic Sx.
[2017-12-12] MEDS: HYDROcodone/APAP 7.5-325MG 1 EACH TAB PO PRN ×4 (12:13→21:23)
[2017-12-12] MEDS: LACTATED RINGERS 1,000 ML IV SCH (17:45)
[2017-12-13] MEDS: HYDROcodone/APAP 7.5-325MG 1 EACH TAB PO PRN ×4 (00:27→10:08)
[2017-12-13] MEDS: SODIUM CHLORIDE 0.9% 1,000 ML IV SCH (05:27)
[2017-12-13] MEDS: amLODIPine 10 MG TAB PO SCH (08:04)
[2017-12-13] MEDS: PANTOPRAZOLE 40 MG TABLET PO SCH (08:04)
[2017-12-13] MEDS: METOPROLOL TARTRATE 25 MG TAB PO SCH (08:04)
[2017-12-13] MEDS: MULTIVITAMINS, THERA 1 EACH TAB PO SCH (08:04)
[2017-12-13] MEDS: FLUTICASONE 50MCG/SPRAY NASAL 16GM EA NOSTRIL SCH (08:05)
[2017-12-13] MEDS: SERTRALINE 100 MG TAB PO SCH (08:05)
[2017-12-13] MEDS: SENNOSIDES-DOCUSATE SODIUM 1 EACH TAB PO SCH (08:05)
[2017-12-13] MEDS: LISINOPRIL-HCTZ 20-25 MG 1 EACH TAB PO SCH (08:05)
[2017-12-13] MEDS: ASPIRIN 81 MG PO SCH (08:05)
[2017-12-13] MEDS: ATORVASTATIN 20 MG TAB PO SCH (08:05)
[2017-12-13 09:44] VITALS: BP 124/67; PULSE 67; TEMP 97.7
--- NOTE | 2017-12-13 10:26 | P.PN ---
Subjective Progress Note Date: 12/13/17 Principal diagnosis: Medical management Patient seen and examined. No acute events overnight. Patient reports improved back pain. He's been working with PT, climbing stairs. Able to take shower yesterday. He has no complaints this morning. Objective - Vital Signs Vital signs: Vital Signs Temp 97.7 F 12/13/17 07:00 Pulse 67 12/13/17 07:00 Resp 16 12/13/17 07:00 BP 124/67 12/13/17 07:00 Pulse Ox 92 L 12/13/17 07:00 Intake & Output 12/12/17 12/13/17 12/13/17 18:59 06:59 18:59 Intake Total 1246 200 Balance 1246 200 Intake: Oral 1246 200 Other: Voiding Method Toilet Urinal # Voids 1 - Exam General: [non toxic], [no distress], [appears at stated age] Derm: [warm], [dry] Head: [atraumatic], [normocephalic], [symmetric] Eyes: [EOMI], [no lid lag], [anicteric sclera] Mouth: [no lip lesion], [mucus membranes moist] Cardiovascular: [S1S2 reg], [no murmur], [positive DP pulse bilateral] Lungs: [CTA bilateral], [no rhonchi, no rales] , [no accessory muscle use] Abdominal: [soft], [ nontender to palpation], [no guarding], [no appreciable organomegaly] Ext: [no gross muscle atrophy], [no edema], [no contractures] Neuro: [no focal neuro deficits] Psych: [Alert], [oriented], [appropriate affect] - Labs CBC & Chem 7: 12/11/17 07:21 12/11/17 07:21 Assessment and Plan Assessment: Assessment and Plan 1. Spinal stenosis: s/p laminectomy and decompression L4-5 POD 1. Cefazolin IV x 2 doses. Pain management with [place] 7.5mg 1-2 tabs PO Q6H and Dilaudid 0.5 mg IV Q4H PRN. Neurochecks. FU PT/OT, Orthopedic Sx 2. Hypertension: BP 124/67. Continue Amlodipine 10 mg PO QD, Lisinopril-HCTZ 20- 25 2 tab PO QD, Metoprolol 25 mg PO BID. Monitor vitals, adjust medications as necessary. 3. ASCVD risk: Continue ASA 81 mg PO QD, Lipitor 20 mg PO QHS. 4. Depression: Stable. Continue Sertraline 100 mg PO QD. 5. DVT/GI Prophylaxis: Protonix 20 mg PO QD. SCD boots only. Patient to continue working with PT and OT. Pain control with [place] PRN. No Dilaudid since 10AM yesterday. Likely DC today per Orthopedic Sx.
--- NOTE | 2017-12-13 11:40 | P.DS ---
Providers Date of admission: 12/10/17 06:04 Attending physician: Daylin Perkins Consults: 12/10/17 10:39 Consult Physician Routine Consulting Provider: Jada Porras Consult Reason/Comments: Medical management Do you want consulting provider notified?: Yes Primary care physician: Aashish Deshpande MD Hospital Course: The patient presented on the day of admission as per his operative note. He had severe spinal stenosis with spondylolisthesis which having severe symptoms in his back and lower extremities. He underwent his surgical procedure as per his operative note. His progress postoperatively. He has been ambulatory around his room and into the hallways. He denies any chest patient. He is tolerating his regular diet. He is having improvement in his lower extremities. He says he has not yet had a bowel movement but is passing gas well. Physical Exam The incision site is clean dry and intact. There is no erythema no drainage. There is no purulence no evidence of infection. His back has some bruising around there is no drainage there is no erythema there is no significant swelling or evidence of infection Abdomen soft and nontender. Chest has good excursion with deep inspiration and expiration. The patient has active and passive range of motion intact at the upper and lower extremities. There is no acute change in neurologic status. He has sustained dorsiflexion plantar flexion and EHL intact. Hospital Course Postoperative day #3 status post minimally invasive decompression and fusion for spondylolisthesis with spinal stenosis and lower extremity radiculopathy and weakness. The patient has been making good progress postoperatively. he started somewhat slowly with his IV medications but is now transitioning to full oral medication for pain control. They have completed the prophylactic antibiotics without any signs or symptoms of infection. The patient has been able to advance their diet, and is tolerating diet adequately. The pain was initially controlled with IV medications and is now controlled appropriately with oral medications. The patient has been able to increase their mobilization. The patient has progressed appropriately. I think they are in good stable condition for discharge today. They will be sent home with appropriate prescriptions. His wound is clear think it is okay for her to get wet but he should not soak in a tub. He may leave it open to air. I answered their questions to the best of my ability in a language that they can understand and they are agreeable with the plan. They will follow up as directed in approximately 2 weeks or sooner if he is having any problems . Patient Condition at Discharge: Good Plan - Discharge Summary Discharge Rx Participant: Yes New Discharge Prescriptions: New HYDROcodone/APAP 7.5-325MG [[place] 7.5-325] 1 - 2 each PO Q6HR PRN #56 tab PRN Reason: Pain No Action Ibuprofen 800 mg PO TID PRN PRN Reason: Pain Aspirin 81 mg PO DAILY clonazePAM [KlonoPIN] 1 - 1.5 mg PO TID PRN PRN Reason: Anxiety Omeprazole [PriLOSEC] 20 mg PO AC-BRKFST Multivitamin [Men's Multi-Vitamin] 1 tab PO DAILY HYDROcodone/APAP 7.5-325MG [[place] 7.5-325] 1 tab PO TID PRN PRN Reason: Pain Fluticasone Nasal [place] [Flonase Nasal [place]] 2 sprays EA NOSTRIL DAILY Atorvastatin [Lipitor] 20 mg PO DAILY amLODIPine [Norvasc] 10 mg PO DAILY Lisinopril-Hctz 20-25 mg [Zestoretic 20-25] 2 tab PO DAILY Metoprolol Tartrate [Lopressor] 25 mg PO BID Sertraline [Zoloft] 100 mg PO DAILY Discharge Medication List Aspirin 81 mg PO DAILY 06/25/17 [History] Atorvastatin [Lipitor] 20 mg PO DAILY 06/25/17 [History] Fluticasone Nasal [place] [Flonase Nasal [place]] 2 sprays EA NOSTRIL DAILY [History] HYDROcodone/APAP 7.5-325MG [[place] 7.5-325] 1 tab PO TID PRN 06/25/17 [History] Ibuprofen 800 mg PO TID PRN 06/25/17 [History] Multivitamin [Men's Multi-Vitamin] 1 tab PO DAILY 06/25/17 [History] Omeprazole [PriLOSEC] 20 mg PO AC-BRKFST 06/25/17 [History] clonazePAM [KlonoPIN] 1 - 1.5 mg PO TID PRN 06/25/17 [History] Lisinopril-Hctz 20-25 mg [Zestoretic 20-25] 2 tab PO DAILY 12/02/17 [History] Metoprolol Tartrate [Lopressor] 25 mg PO BID 12/02/17 [History] Sertraline [Zoloft] 100 mg PO DAILY 12/02/17 [History] amLODIPine [Norvasc] 10 mg PO DAILY 12/02/17 [History] HYDROcodone/APAP 7.5-325MG [[place] 7.5-325] 1 - 2 each PO Q6HR PRN #56 tab [Rx] Follow up Appointment(s)/Referral(s): Morro Vilchis, ANNI [PHYSICIAN T[employer] TRIMMING LINE TECHNICIAN] - 2 Weeks (Patient may follow-up with Morro Vilchis PA-C or Dr. Yuan Perkins at [facility] in 2-3 weeks following discharge. ) Activity/Diet/Wound Care/Special Instructions: 1. Patient may shower with Tegaderm dressing intact. 2. Patient may remove Tegaderm dressing in 3 days and shower without a dressing at that time. 3. Patient should keep Steri-Strips intact and allow them to fall off naturally. 4. Patient should refrain from driving until at least after their first follow- up appointment in the office. 5. Patient should avoid excessive bending, twisting, and lifting; no lifting greater than 10 pounds 6. Take medications as prescribed 7. Do not soak in tub Discharge Disposition: HOME SELF-CARE
== END 2017-12-13 12:02 | disposition home or self-care (01) | DRG 455 ==
LOC: 2ORMAIN 06:04 → 4SSUR 10:44
PROVIDERS: ADMIT Orthopaedic Surgery Orthopaedic Surgery of the Spine; ATTEND Orthopaedic Surgery Orthopaedic Surgery of the Spine
PROC: 0SG00AJ Fusion of Lumbar Vertebral Joint with Interbody Fusion Device, Posterior Approach, Anterior Column, Open Approach (ICD-10-PCS; 2017-12-10)
PROC: 0SG0071 Fusion of Lumbar Vertebral Joint with Autologous Tissue Substitute, Posterior Approach, Posterior Column, Open Approach (ICD-10-PCS; 2017-12-10)
PROC: 30233N0 Transfusion of Autologous Red Blood Cells into Peripheral Vein, Percutaneous Approach (ICD-10-PCS; 2017-12-10)
PROC: 0ST20ZZ Resection of Lumbar Vertebral Disc, Open Approach (ICD-10-PCS; principal; 2017-12-10 07:30)
DX: M48.061 Spinal stenosis, lumbar region without neurogenic claudication (principal); M43.16 Spondylolisthesis, lumbar region; E78.5 Hyperlipidemia, unspecified; F32.9 Major depressive disorder, single episode, unspecified; G47.30 Sleep apnea, unspecified; I10 Essential (primary) hypertension; K21.9 Gastro-esophageal reflux disease without esophagitis; M51.16 Intervertebral disc disorders with radiculopathy, lumbar region; Z79.82 Long term (current) use of aspirin; Z79.899 Other long term (current) drug therapy; Z87.891 Personal history of nicotine dependence; M19.90 Unspecified osteoarthritis, unspecified site; Z98.84 Bariatric surgery status; Z83.3 Family history of diabetes mellitus; Z82.49 Family history of ischemic heart disease and other diseases of the circulatory system; Z83.2 Family history of diseases of the blood and blood-forming organs and certain disorders involving the immune mechanism; Z98.1 Arthrodesis status
CPT/HCPCS: 72100; 80048; 85025

== ENCOUNTER → 2020-05-12 | Outpatient (CLI) | payer MEDICARE, BC ==
--- NOTE | 2020-05-12 16:08 | PE ---
EXAMINATION TYPE: PET CT fusion skull to thigh DATE OF EXAM: 05/12/2020 COMPARISON: NONE HISTORY: Right-sided lung mass newly diagnosed cancer in May 10 TECHNIQUE: Following the intravenous administration of 9.48 mCi of F-18 FDG, whole body images are p erformed from the skull base to the midthigh. Images are reviewed on the computer in the coronal, ax ial, and sagittal planes. Reconstructed rotating images are created on independent workstation and r eviewed on the computer. A localization and attenuation correction CT is performed in conjunction w ith the PET scan. SCAN: Initial Scan FINDINGS: SKULL BASE AND NECK: No areas of abnormal hypermetabolic uptake. CHEST, MEDIASTINUM, AND HILAR REGION: There is a large hypermetabolic right hilar mass measuring appr oximately 9.7 x 6.9 cm image 82. There is abrupt occlusion of right upper lobe bronchus. Some right-s ided volume loss with mediastinal shift is seen. Left lung is clear. There is hypermetabolic 1.5 x 1.2 cm subcarinal lymph node axial image 79. There is hypermetabolic 1. 4 x 1.1 cm right tracheobronchial lymph node axial image 74. There is some hypermetabolic irregular s oft tissue in the prevascular space posteriorly axial image 75 suspicious for abnormal adenopathy. ABDOMEN AND PELVIS: There is anterior left adrenal hypermetabolic mass suspected measuring 3.0 x 2.3 cm axial image 126. There is metastatic right rectus 6.6 x 2.8 cm lesion axial image 141. Normal excretion. Nonspecific bowel uptake. OSSEOUS STRUCTURES: No suspicious abnormal hypermetabolic uptake in osseous structures OTHER CT: Moderate calcified plaque right greater than left carotid bulbs. Calculation a level of the aortic valve. Mild cardiomegaly. Moderate to severe coronary artery calcif ication. Small to moderate size hiatal hernia. Evidence of prior gastric sleeve surgery. Cholecystectomy clips. There is 3.0 cm thin-walled cyst medially midpole of the right kidney. Some di verticula in the sigmoid colon. Digital change L4-L5 level in the spine. Mild to moderate calcified plaque of the abdominal aorta ext ends into iliac branch vessels. IMPRESSION: Findings consistent with high stage primary right hilar lung neoplasm with abnormal thora cic adenopathy, left adrenal metastatic lesion, and unusual anterior right mid abdominal rectus metas tatic deposit.
== END | disposition home or self-care (01) ==
LOC: RADPETMAIN 12:24
PROVIDERS: ATTEND Internal Medicine Critical Care Medicine
DX: R91.8 Other nonspecific abnormal finding of lung field (principal)
CPT/HCPCS: 78815; A9552

== ENCOUNTER → 2020-05-26 | Outpatient (CLI) | payer MEDICARE, BC ==
--- NOTE | 2020-05-26 20:07 | MR ---
EXAMINATION TYPE: MR brain wo/w con DATE OF EXAM: 05/26/2020 COMPARISON: None HISTORY: Lung cancer CONTRAST: Performed utilizing 10 mL intravenous Gadavist gadolinium contrast. TECHNIQUE: Multiplanar, multiecho imaging on a 3.0 Susannah magnet is performed through the brain. Stud y is performed within 24 hours of arrival to the hospital. The craniovertebral junction is normal. The pituitary is normal. Diffusion-weighted imaging is performed. No abnormal hyperintensity is present to suggest an acute i ntracranial infarct or acute ischemic change. There are scattered deep white matter changes present bilaterally which are nonspecific. Chronic Whit e matter ischemic changes within the differential. No enhancement is evident through these regions. Ventricles and sulci are mildly prominent for the patient age. No suspicious enhancement is evident. IMPRESSIONS: 1. Scattered periventricular white matter ischemic type changes with age related atrophy. 2. No suspicious enhancement to suggest metastatic disease.
== END | disposition home or self-care (01) ==
LOC: RADMRIMAIN 09:19
PROVIDERS: ATTEND Internal Medicine Hematology & Oncology
DX: C34.11 Malignant neoplasm of upper lobe, right bronchus or lung (principal); I67.82 Cerebral ischemia
CPT/HCPCS: 70553; A9585

== ENCOUNTER → 2020-06-12 | Outpatient (CLI) | payer MEDICARE, BC ==
[2020-06-12 18:23] LABS: Basophils # (A) 0.09 X 10*3/uL (0.00-0.10); Basophils % (A) 0.8 %; Eosinophils % (A) 2.7 %; HCT 34.2 % (39.6-50.0); HGB 10.9 g/dL (13.0-17.0); Lymphocytes # (A) 0.82 X 10*3/uL (0.90-5.00); Lymphocytes % (A) 7.4 %; MCH 27.8 pg (27.0-32.0); MCHC 31.9 g/dL (32.0-37.0); MCV 87.2 fL (80.0-97.0); Mean Platelet Volume 10.4 fL (9.5-12.2); Monocytes # (A) 0.84 X 10*3/uL (0.20-1.00); Monocytes % (A) 7.5 %; Neutrophils # (A) 9.04 X 10*3/uL (1.80-7.70); Neutrophils % (A) 81.1 %; Platelet Count 328 X 10*3/uL (140-440); RBC 3.92 X 10*6/uL (4.40-5.60); RDW 14.4 % (11.5-14.5); WBC 11.15 X 10*3/uL (4.50-10.00)
[2020-06-12 20:07] LABS: African American GFR (CKD) 67.2 (60.0-200.0); Anion Gap 6.7 mmol/L (4.00-12.00); BUN/Creat Ratio 23.33 Ratio (12.00-20.00); Carbon Dioxide 32.3 mmol/L (21.6-31.8); Potassium 3.3 mmol/L (3.5-5.5)
== END | disposition home or self-care (01) ==
LOC: LABWHC1 13:27
PROVIDERS: ATTEND Radiology Radiation Oncology
DX: C34.11 Malignant neoplasm of upper lobe, right bronchus or lung (principal)
CPT/HCPCS: 36415; 80048; 85025

== ENCOUNTER 2020-08-17 10:40 | Observation (INO) | payer MEDICARE, BC ==
[2020-08-17 10:48] VITALS: TEMP 97.8
[2020-08-17] MEDS ORDERED: SODIUM CHLORIDE 0.9% 1,000 ML IV STA (11:07)
[2020-08-17] MEDS ORDERED: SODIUM CHLORIDE 0.9% 500 ML 500 ML IV STA (11:07)
--- NOTE | 2020-08-17 11:44 | ED ---
General Adult HPI - General Chief complaint: Dizziness Stated complaint: low BP Time Seen by Provider: 08/17/20 10:45 Source: patient, RN notes reviewed, old records reviewed Mode of arrival: EMS Limitations: no limitations - History of Present Illness Initial comments: This is a 75-year-old male who presents emergency Department complaining of being very lightheaded and almost passing out. Patient states he has lung cancer stage IV with chemotherapy. Patient states lying in bed he feels at his baseline currently patient denies any chest pain or palpitations. Patient denies being short of breath currently he states earlier he might of been a li ttle short of breath as he was passing out. Patient denies any fever or chills. Patient denies any nausea vomiting diarrhea. Patient states he has been eating but does not drink a lot of fluids because he has trouble swallowing liquids. Patient is post get a swallow eval. - Related Data Home Medications Medication Instructions Recorded Confirmed Aspirin 81 mg PO DAILY 06/25/17 08/17/20 Atorvastatin [Lipitor] 20 mg PO DAILY 06/25/17 08/17/20 Fluticasone Nasal [place] [Flonase 2 sprays EA NOSTRIL DAILY PRN 06/25/17 08/17/20 Nasal [place]] Ibuprofen 800 mg PO TID PRN 06/25/17 08/17/20 Multivitamin [Men's Multi-Vitamin] 1 tab PO DAILY 06/25/17 08/17/20 clonazePAM [KlonoPIN] 1 - 1.5 mg PO TID PRN 06/25/17 08/17/20 Metoprolol Tartrate [Lopressor] 25 mg PO BID 12/02/17 08/17/20 Sertraline [Zoloft] 100 mg PO DAILY 12/02/17 08/17/20 Codeine Phosphate/Guaifenesin 10 ml PO Q4H PRN 08/17/20 08/17/20 [Guaifen-Codeine 100-10 mg/5 ml] Cyanocobalamin (Vitamin B-12) 1,000 mcg PO DAILY 08/17/20 08/17/20 [Vitamin B-12] Famotidine [Pepcid] 20 mg PO DAILY 08/17/20 08/17/20 Fluticasone/Salmeterol [Advair 1 puff INHALATION RT-BID PRN 08/17/20 08/17/20 100-50 Diskus] Gabapentin [Neurontin] 100 mg PO TID 08/17/20 08/17/20 Prochlorperazine [Compazine] 10 mg PO TID 08/17/20 08/17/20 fentaNYL 50MCG/HR PATCH [Duragesic 1 patch TRANSDERM Q72H 08/17/20 08/17/20 50MCG/HR] oxyCODONE HCL [OxyIR] 10 mg PO Q6H PRN 08/17/20 08/17/20 Allergies Allergy/AdvReac Type Severity Reaction Status Date / Time No Known Allergies Allergy Verified 08/17/20 12:16 Review of Systems ROS Statement: Those systems with pertinent positive or pertinent negative responses have been documented in the HPI. ROS Other: All systems not noted in ROS Statement are negative. Past Medical History Past Medical History: Cancer, GERD/Reflux, Hyperlipidemia, Hypertension, Osteoarthritis (OA), Sleep Apnea/CPAP/BIPAP Additional Past Medical History / Comment(s): no problems w/blood sugar since lost >100#, unable to use CPAP, pain & numbness down left arm, left hand numb, lung CA-radiation and chemo 08/17 History of Any Multi-Drug Resistant Organisms: None Reported Past Surgical History: Bariatric Surgery Additional Past Surgical History / Comment(s): sinus surg, gastric sleeve Past Anesthesia/Blood Transfusion Reactions: No Reported Reaction Additional Past Anesthesia/Blood Transfusion Reaction / Comment(s): mother- had time coming out Past Psychological History: Anxiety, Depression Smoking Status: Former smoker Past Alcohol Use History: None Reported Past Drug Use History: None Reported - Past Family History Sister(s) Family Medical History: Deep Vein Thrombosis (DVT) General Exam - General Exam Comments Initial Comments: GENERAL: Patient is well-developed and well-nourished. Patient is nontoxic and well- hydrated and is in no acute distress. ENT: Neck is soft and supple. No significant lymphadenopathy is noted. Oropharynx is clear. Moist mucous membranes. Neck has full range of motion without eliciting any pain EYES: The sclera were anicteric and conjunctiva were pink and moist. Extraocular movements were intact and pupils were equal round and reactive to light. Eyelids were unremarkable. PULMONARY: Unlabored respirations. Good breath sounds bilaterally. No audible rales rhonchi or wheezing was noted. CARDIOVASCULAR: There is a regular rate and rhythm without any murmurs gallops or rubs. ABDOMEN: Soft and nontender with normal bowel sounds. SKIN: Skin is clear with no lesions or rashes and otherwise unremarkable. NEUROLOGIC: Patient is alert and oriented x3. Cranial nerves II through XII are grossly intact. Motor and sensory are also intact. Normal speech, volume and content. Symmetrical smile. MUSCULOSKELETAL: Normal extremities with adequate strength and full range of motion. LYMPHATICS: No significant lymphadenopathy is noted PSYCHIATRIC: Normal psychiatric evaluation. Limitations: no limitations Course Vital Signs 08/17/20 08/17/20 08/17/20 10:43 11:05 11:28 Temperature 97.8 F Pulse Rate 98 98 92 Respiratory 18 18 20 Rate Blood Pressure 87/62 76/55 85/61 O2 Sat by Pulse 90 L 98 96 Oximetry Medical Decision Making - Medical Decision Making EKG shows sinus rhythm at 90 bpm [place] interval is 232 QRS is 98 QT interval 356 QTC is 454 patient's EKG shows no ST segment elevation or depression. Chest x-ray shows perihilar infiltrate on the right patient is having no symptoms of pneumonia and at this time is believed to be related to the lung cancer. I went back into the and reevaluated the patient's blood pressure systolic did not give him 100 and he was still feeling dizzy at this time. Family wanted the patient to stay to get hydrated and patient was in agreement with this. Patient did take his blood pressure medicines this morning. - Lab Data Result diagrams: 08/17/20 11:23 08/17/20 11:23 Lab Results 08/17/20 08/17/20 08/17/20 Range/Units 11:23 11:23 11:23 WBC 7.2 (3.8-10.6) k/uL RBC 3.66 L (4.30-5.90) m/uL Hgb 9.8 L (13.0-17.5) gm/dL Hct 31.6 L (39.0-53.0) % MCV 86.3 (80.0-100.0) fL MCH 26.7 (25.0-35.0) pg MCHC 31.0 (31.0-37.0) g/dL RDW 16.0 H (11.5-15.5) % Plt Count 160 (150-450) k/uL MPV 7.9 Neutrophils % 79 % Lymphocytes % 10 % Monocytes % 7 % Eosinophils % 2 % Basophils % 1 % Neutrophils # 5.7 (1.3-7.7) k/uL Lymphocytes # 0.7 L (1.0-4.8) k/uL Monocytes # 0.5 (0-1.0) k/uL Eosinophils # 0.1 (0-0.7) k/uL Basophils # 0.1 (0-0.2) k/uL Hypochromasia Moderate Anisocytosis Slight PT 12.2 H (9.0-12.0) sec INR 1.2 H (<1.2) APTT 25.6 (22.0-30.0) sec Sodium 135 L (137-145) mmol/L Potassium 4.0 (3.5-5.1) mmol/L Chloride 103 (98-107) mmol/L Carbon Dioxide 25 (22-30) mmol/L Anion Gap 7 mmol/L BUN 11 (9-20) mg/dL Creatinine 0.97 (0.66-1.25) mg/dL Est GFR (CKD-EPI)AfAm 87 (>60 ml/min/1.73 sqM) Est GFR (CKD-EPI)NonAf 76 (>60 ml/min/1.73 sqM) Glucose 212 H (74-99) mg/dL Calcium 8.9 (8.4-10.2) mg/dL Magnesium 1.6 (1.6-2.3) mg/dL Total Bilirubin 0.7 (0.2-1.3) mg/dL AST 21 (17-59) U/L ALT 9 (4-49) U/L Alkaline Phosphatase 108 (38-126) U/L Troponin I (0.000-0.034) ng/mL Total Protein 5.6 L (6.3-8.2) g/dL Albumin 2.7 L (3.5-5.0) g/dL 08/17/20 Range/Units 11:23 WBC (3.8-10.6) k/uL RBC (4.30-5.90) m/uL Hgb (13.0-17.5) gm/dL Hct (39.0-53.0) % MCV (80.0-100.0) fL MCH (25.0-35.0) pg MCHC (31.0-37.0) g/dL RDW (11.5-15.5) % Plt Count (150-450) k/uL MPV Neutrophils % % Lymphocytes % % Monocytes % % Eosinophils % % Basophils % % Neutrophils # (1.3-7.7) k/uL Lymphocytes # (1.0-4.8) k/uL Monocytes # (0-1.0) k/uL Eosinophils # (0-0.7) k/uL Basophils # (0-0.2) k/uL Hypochromasia Anisocytosis PT (9.0-12.0) sec INR (<1.2) APTT (22.0-30.0) sec Sodium (137-145) mmol/L Potassium (3.5-5.1) mmol/L Chloride (98-107) mmol/L Carbon Dioxide (22-30) mmol/L Anion Gap mmol/L BUN (9-20) mg/dL Creatinine (0.66-1.25) mg/dL Est GFR (CKD-EPI)AfAm (>60 ml/min/1.73 sqM) Est GFR (CKD-EPI)NonAf (>60 ml/min/1.73 sqM) Glucose (74-99) mg/dL Calcium (8.4-10.2) mg/dL Magnesium (1.6-2.3) mg/dL Total Bilirubin (0.2-1.3) mg/dL AST (17-59) U/L ALT (4-49) U/L Alkaline Phosphatase (38-126) U/L Troponin I 0.019 (0.000-0.034) ng/mL Total Protein (6.3-8.2) g/dL Albumin (3.5-5.0) g/dL Disposition Clinical Impression: Orthostatic hypotension Disposition: ADMITTED IP TO THIS HOSP Referrals: Hilario Gomez MD [Primary Care Provider] - 1-2 days Time of Disposition: 14:10
[2020-08-17 11:45] LABS: Anisocytosis Slight; Basophils # (A) 0.1 k/uL (0-0.2); Basophils % (A) 1 %; Eosinophils # (A) 0.1 k/uL (0-0.7); Eosinophils % (A) 2 %; HCT 31.6 % (39.0-53.0); HGB 9.8 gm/dL (13.0-17.5); Hypochromasia Moderate; Lymphocytes # (A) 0.7 k/uL (1.0-4.8); Lymphocytes % (A) 10 %; MCH 26.7 pg (25.0-35.0); MCV 86.3 fL (80.0-100.0); Mean Platelet Volume 7.9; Monocytes # (A) 0.5 k/uL (0-1.0); Monocytes % (A) 7 %; Neutrophils # (A) 5.7 k/uL (1.3-7.7); Neutrophils % (A) 79 %; Platelet Count 160 k/uL (150-450); RBC 3.66 m/uL (4.30-5.90); WBC 7.2 k/uL (3.8-10.6)
[2020-08-17 11:54] LABS: INR 1.2 (<1.2); Partial Thromboplastin Time 25.6 sec (22.0-30.0); Prothrombin Time 12.2 sec (9.0-12.0)
[2020-08-17 12:00] LABS: Albumin 2.7 g/dL (3.5-5.0); Calcium 8.9 mg/dL (8.4-10.2); Magnesium 1.6 mg/dL (1.6-2.3); Total Bilirubin 0.7 mg/dL (0.2-1.3); Total Protein 5.6 g/dL (6.3-8.2)
--- NOTE | 2020-08-17 12:17 | XR ---
EXAMINATION TYPE: XR chest 2V DATE OF EXAM: 08/17/2020 COMPARISON: 12/02/[address] 05/12/2020 HISTORY: Chest pain TECHNIQUE: Frontal and lateral views of the chest are obtained. FINDINGS: Overlying leads. Heart size is enlarged. Atherosclerotic aorta. Low lung volumes. There is prominent widening of the mediastinum likely due to the patient's known right hilar mass. Patchy rig ht perihilar and right basilar airspace opacities. No pleural effusion. The left lung is clear. Cervi jhonny spine hardware. Bony demineralization. Degenerative changes of the right shoulder. IMPRESSION: 1. Right patchy perihilar and basilar airspace opacities suggestive of atelectasis or developing pneu monia. 2. There is prominent widening of the mediastinum. This is likely due to the patient's known right hi lar mass.
[2020-08-17] MEDS ORDERED: SODIUM CHLORIDE 0.9% 1,000 ML IV ONE (14:11)
[2020-08-17] MEDS ORDERED: guaiFENesin-Coden 100-10MG/5ML 10 ML CUP PO PRN (19:32)
[2020-08-17] MEDS ORDERED: SYMBICORT 80-4.5 MCG INHALER INHALATION PRN (19:32)
[2020-08-17] MEDS ORDERED: IBUPROFEN 800 MG TAB PO PRN (19:32)
[2020-08-17] MEDS ORDERED: FLUTICASONE 50MCG/SPRAY NASAL 16GM EA NOSTRIL PRN (19:32)
[2020-08-17] MEDS ORDERED: ACETAMINOPHEN TAB 325 MG TAB PO PRN (19:35)
--- NOTE | 2020-08-17 20:49 | P.HPIM ---
History of Present Illness H&P Date: 08/17/20 Chief Complaint: Passing out Patient is a 75-year-old male with a known history of metastatic lung cancer, status post radiation supposed to get chemotherapy today, hypertension, hyperlipidemia, osteoarthritis, obstructive sleep apnea, anxiety/depression previous history of smoking was brought to the hospital by family due to dizziness and near syncopal episode. Patient states that she almost passed out. Denied any loss of consciousness. Patient has been having nausea and not eating well due to lack of appetite. Patient also has trouble swallowing liquids and does not take a lot of fluids. No complaints of chest pain or shortness of the. No fever no chills. None complains of vomiting. No abdominal pain or diarrhea. Chest x-ray showed right patchy perihilar and basilar airspace opacities suggestive of atelectasis or developing pneumonia. There is prominent widening of the mediastinum. This is likely due to patient's known right hilar mass. EKG showed sinus rhythm with first-degree AV block. Vitals on admission blood pressure 87/62 pulse ox 90% on room air and pulse 98 and respirations 18. Patient has been afebrile. Patient was given 2.5 l fluid bolus in the ER. Laboratory data showed WBC 7.2 hemoglobin 9.8 and RDW 16 and platelets 160 INR 1.2 Sodium 135 potassium 4.0 chloride 103 BUN 11 creatinine 0.97 blood sugar is 212 albumin 2.7 troponin x1 - and liver enzymes are not elevated. Patient is orthostatic positive on admission. Review of Systems Constitutional: Patient denies any fever or chills . generalized weakness. no weight loss. Abdomen: Patient denied nausea vomiting and diarrhea and abdominal pain. Cardiovascular: Patient denies any chest pain or short of breath no palpitations. Respiratory: patient denied any cough or sputum production. No shortness of breath Neurologic: Patient denied any numbness or tingling headache.Near syncopal episode and dizziness. Musculoskeletal: Patient denies any complaints of joint swelling or deformity. Skin: Negative Psychiatric: Negative Endocrine: No heat or cold intolerance. No recent weight gain. Genitourinary: No dysuria or hematuria. All other 14 point ROS negative except the above Past Medical History Past Medical History: Cancer, GERD/Reflux, Hyperlipidemia, Hypertension, Osteoarthritis (OA), Sleep Apnea/CPAP/BIPAP Additional Past Medical History / Comment(s): no problems w/blood sugar since lost >100#, unable to use CPAP, pain & numbness down left arm, left hand numb, lung CA-radiation and chemo 08/17 History of Any Multi-Drug Resistant Organisms: None Reported Past Surgical History: Bariatric Surgery Additional Past Surgical History / Comment(s): sinus surg, gastric sleeve Past Anesthesia/Blood Transfusion Reactions: No Reported Reaction Additional Past Anesthesia/Blood Transfusion Reaction / Comment(s): mother- had time coming out Past Psychological History: Anxiety, Depression Smoking Status: Former smoker Past Alcohol Use History: None Reported Past Drug Use History: None Reported - Past Family History Sister(s) Family Medical History: Deep Vein Thrombosis (DVT) Medications and Allergies Home Medications Medication Instructions Recorded Confirmed Type Aspirin 81 mg PO DAILY 06/25/17 08/17/20 History Atorvastatin [Lipitor] 20 mg PO DAILY 06/25/17 08/17/20 History Fluticasone Nasal [place] [Flonase 2 sprays EA NOSTRIL DAILY PRN 06/25/17 08/17/20 History Nasal [place]] Ibuprofen 800 mg PO TID PRN 06/25/17 08/17/20 History Multivitamin [Men's Multi-Vitamin] 1 tab PO DAILY 06/25/17 08/17/20 History clonazePAM [KlonoPIN] 1 - 1.5 mg PO TID PRN 06/25/17 08/17/20 History Metoprolol Tartrate [Lopressor] 25 mg PO BID 12/02/17 08/17/20 History Sertraline [Zoloft] 100 mg PO DAILY 12/02/17 08/17/20 History Codeine Phosphate/Guaifenesin 10 ml PO Q4H PRN 08/17/20 08/17/20 History [Guaifen-Codeine 100-10 mg/5 ml] Cyanocobalamin (Vitamin B-12) 1,000 mcg PO DAILY 08/17/20 08/17/20 History [Vitamin B-12] Famotidine [Pepcid] 20 mg PO DAILY 08/17/20 08/17/20 History Fluticasone/Salmeterol [Advair 1 puff INHALATION RT-BID PRN 08/17/20 08/17/20 History 100-50 Diskus] Gabapentin [Neurontin] 100 mg PO TID 08/17/20 08/17/20 History Prochlorperazine [Compazine] 10 mg PO TID 08/17/20 08/17/20 History fentaNYL 50MCG/HR PATCH [Duragesic 1 patch TRANSDERM Q72H 08/17/20 08/17/20 History 50MCG/HR] oxyCODONE HCL [OxyIR] 10 mg PO Q6H PRN 08/17/20 08/17/20 History Allergies Allergy/AdvReac Type Severity Reaction Status Date / Time No Known Allergies Allergy Verified 08/17/20 12:16 Physical Exam Vitals: Vital Signs Temp Pulse Resp BP Pulse Ox 08/17/20 11:28 92 20 85/61 96 08/17/20 11:05 98 18 76/55 98 08/17/20 10:43 97.8 F 98 18 87/62 90 L Intake and Output 08/17/20 08/17/20 08/17/20 06:59 14:59 22:59 Other: Weight 99.79 kg PHYSICAL EXAMINATION: Patient is lying in the bed comfortably, no acute distress, awake alert and oriented.. HEENT: Normocephalic. Neck is supple. Pupils reactive. Nostrils clear. Oral cavity is moist. Neck reveals no JVD, carotid bruits, or thyromegaly. CHEST EXAMINATION: Trachea is central. Symmetrical expansion. Bibasilar diminished sounds.Lung kilpatrick clear to auscultation and percussion. CARDIAC: Normal S1, S2 with no gallops. No murmurs ABDOMEN: Soft. Bowel sounds normal. No organomegaly. No abdominal bruits. Extremities: reveal no edema. No clubbing or cyanosis Neurologically awake, alert, oriented x3 with well-coordinated movements. No focal deficits noted Skin: No rash or skin lesions. Psychiatric: Coperative. Could not be assessed completely. Musculoskeletal: No joint swelling or deformity. Normal range of motion. Results CBC & Chem 7: 08/17/20 11:23 08/17/20 11:23 Labs: Abnormal Lab Results - Last 24 Hours (Table) 08/17/20 08/17/20 08/17/20 Range/Units 11:23 11:23 11:23 RBC 3.66 L (4.30-5.90) m/uL Hgb 9.8 L (13.0-17.5) gm/dL Hct 31.6 L (39.0-53.0) % RDW 16.0 H (11.5-15.5) % Lymphocytes # 0.7 L (1.0-4.8) k/uL PT 12.2 H (9.0-12.0) sec INR 1.2 H (<1.2) Sodium 135 L (137-145) mmol/L Glucose 212 H (74-99) mg/dL Total Protein 5.6 L (6.3-8.2) g/dL Albumin 2.7 L (3.5-5.0) g/dL Thrombosis Risk Factor Assmnt - DVT/VTE Prophylaxis DVT/VTE Prophylaxis: Pharmacologic Prophylaxis ordered Assessment and Plan Assessment: Near syncopal episode due to orthostatic hypotension and volume depletion as well as narcotic pain medication use.. Decrease oral intake and lack of appetite and difficulty swallowing. Anemia of chronic disease Lung cancer metastatic status post radiation and supposed to get chemotherapy on 08/17/2020 Hypertension currently hypotensive GERD Osteoarthritis Hyperlipidemia Obstructive sleep apnea not on CPAP Anxiety/depression Previous history of smoking DVT prophylaxis and GI prophylaxis. Plan: Patient will be continued on IV hydration with normal saline and monitor electrolytes and renal function. Hold blood pressure medications. Continue with breathing treatment and other home medications. Symptomatic management for nausea. Patient is fentanyl patch which was removed by EMS. Continue to monitor for opiate withdrawal symptoms and follow-up closely. Oncology was consulted. Prognosis is guarded at this time. Time with Patient: Greater than 30
[2020-08-17] MEDS: PROCHLORPERAZINE 10 MG TAB PO SCH (21:45)
[2020-08-17] MEDS: GABAPENTIN 100 MG CAP PO SCH (21:45)
[2020-08-18] MEDS: HEPARIN SODIUM,PORCINE/PF 5,000 UNIT/0.5 ML SYRINGE SQ SCH ×3 (00:37→16:21)
[2020-08-18 05:48] LABS: Anisocytosis Slight; Basophils # (A) 0.1 k/uL (0-0.2); Basophils % (A) 2 %; Eosinophils # (A) 0.1 k/uL (0-0.7); Eosinophils % (A) 2 %; HCT 30.4 % (39.0-53.0); HGB 9.4 gm/dL (13.0-17.5); Hypochromasia Moderate; Lymphocytes # (A) 0.8 k/uL (1.0-4.8); Lymphocytes % (A) 16 %; MCH 26.7 pg (25.0-35.0); MCHC 30.9 g/dL (31.0-37.0); MCV 86.6 fL (80.0-100.0); Mean Platelet Volume 8.1; Monocytes # (A) 0.5 k/uL (0-1.0); Monocytes % (A) 10 %; Neutrophils # (A) 3.4 k/uL (1.3-7.7); Neutrophils % (A) 68 %; Platelet Count 140 k/uL (150-450); RBC 3.51 m/uL (4.30-5.90); RDW 16.2 % (11.5-15.5); WBC 5.1 k/uL (3.8-10.6)
[2020-08-18] MEDS: PROCHLORPERAZINE 10 MG TAB PO SCH ×2 (08:13→16:45)
[2020-08-18] MEDS: GABAPENTIN 100 MG CAP PO SCH ×2 (08:13→16:45)
[2020-08-18] MEDS ORDERED: ALPRAZolam 0.25 MG TAB PO PRN ×2 (08:17→10:27)
[2020-08-18] MEDS ORDERED: SERTRALINE 100 MG TAB PO SCH (09:00)
[2020-08-18] MEDS ORDERED: ATORVASTATIN 20 MG TAB PO SCH (09:00)
[2020-08-18] MEDS ORDERED: CYANOCOBALAMIN 500 MCG TAB PO SCH (09:00)
[2020-08-18] MEDS ORDERED: ASPIRIN 81 MG PO SCH (09:00)
[2020-08-18] MEDS ORDERED: MULTIVITAMINS, THERA 1 EACH TAB PO SCH (09:00)
[2020-08-18] MEDS ORDERED: FAMOTIDINE 20 MG TAB PO SCH (09:00)
[2020-08-18] MEDS ORDERED: SODIUM CHLORIDE 0.9% 1,000 ML IV SCH (10:30)
--- NOTE | 2020-08-18 11:09 | IR ---
PICC LINE PLACEMENT: HISTORY: Infection requiring long-term antibiotic therapy PROCEDURE: Ultrasound and fluoroscopic guidance of PICC line placement. COMPLICATIONS: None ANESTHESIA: 1. 1% Lidocaine locally. FINDINGS/TECHNIQUE: The procedure was explained to the patient. The risks, complications, benefits and alternatives were discussed and any questions were answered. Informed consent was obtained. The patient was placed supine on the fluoroscopic table and prepped and draped in the usual sterile fash ion. Utilizing a 21 gauge needle and sonographic and fluoroscopic guidance, access in the left basi lic vein was achieved and there is placement of a 0.018 guidewire. The vein is patent. A 4-F sheath was placed over the guidewire. The guidewire and dilator were removed and a 4-F. PICC line was plac ed through the sheath with the tip at the level of the SVC. The sheath was removed, the catheter was flushed and sutured into position. The patient was stable throughout the procedure and remained sta ble upon discharge from the Department of Radiology. The vein puncture was patent under ultrasound. A jaimes scale image was obtained to document patency of the vein punctured. All elements of the maximal barrier technique were utilized. FLUOROSCOPY TIME: 0.2 minutes and 1 images submitted IMPRESSION: Successful PICC line placement under ultrasound and fluoroscopic guidance.
[2020-08-18] MEDS ORDERED: bisacodyL 10 MG SUPP RECTAL STA (11:21)
[2020-08-18 11:32] LABS: % Iron Saturation 9.83 (15.00-50.00); African American GFR (CKD) 83.8 (60.0-200.0); Anion Gap 8.6 mmol/L (4.00-12.00); Calcium 8.7 mg/dL (8.7-10.3); Carbon Dioxide 24.4 mmol/L (21.6-31.8); Non-African American GFR(CKD) 72.3 (60.0-200.0); Potassium 4.5 mmol/L (3.5-5.5)
--- NOTE | 2020-08-18 12:58 | FL ---
Modified barium swallow. HISTORY: Dysphagia. Modified barium swallow was performed with the department of speech pathology. The patient was prese nted with various consistencies of barium. There is no evidence for aspiration or penetration. Full report is to follow from the department of speech pathology. Impression: Normal study.
[2020-08-18 16:48] VITALS: BP 125/84; PULSE 95; RESP 18
--- NOTE | 2020-08-18 18:11 | P.CONS ---
History of Present Illness - Reason for Consult Consult date: 08/18/20 weakness, syncopal episode, non-small cell lung cancer on chemotherapy - History of Present Illness the patient is a 75-year-old white male, known for practice, followed by Dr. Gomez in the office. He initially presented with RUQ pain of several months duration,he had a cholecystectomy in 02/2020,however,there was no improvement in the pain and then he noticed abdominal wall mass. He had COVID infection in the end of 03/2020,CXR at that time revealed right hilar lesion. Since his RUQ pain persisted and he developed a abdominal wall mass,CT scan of abdomen/pelvis on 05/04/2020 revealed a 2.3 x 4.9 cm anterior abdominal wall lesion,felt that it could be a hematoma. CT scan of chest on 05/08/2020,revealed 6.8 x 5.9 cm right hilar mass with abrupt occlusion of right upper lobe bronchus,causing significant narrowing of right sided pulmonary artery,encasing the bronchus intermdius,subcarinal nodes measued 1.7 cm . On 05/12/2020,PET scan revealed suspicious uptake in right lung mass,measured 9.7 x 6.9 cm,hypermetabolic subcarinal node and right paratracheal node and prevascular node,left adrenal hypermetabolic mass measued 3.0 x 2. 3cm,right rectus suspicious mass measured 6.6 x 2.8 cm. 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 On 05/26/2020,brain MRI was negative for metastatic disease.NGS revealed no actionable mutation,PDL-1 1% , He completed palliative XRT to RUQ abdominal wall mass and to his lung (due to hemoptysis)on 06/14/2020. He was scheduled to start systemic therapy on 06/27/2020,however,the patient and his family decided to wait. he ultimately started carboplatin, Taxol, and Keytruda on 07/27/20 and is status post 1 cycle. Day 8 of cycle 1 with Taxol was administered on 08/03/20 to He had a lengthy visit in the office with multiple complaints, mainly related to weakness, and orthostatic symptoms. It is felt that this could, at least in part, be med related. it appears that a couple of his antihypertensive medications were held by Dr. Gomez, and the patient was advised at this visit to contact his wash tank tender. I fluids at home are also ordered through his palliative care. The patient's daughter states that due to issues with IV access and nursing availability, the patient did not start IV fluids yet at home. Apparently his oral intake had been fair, but he was having some difficulty with swallowing thin liquids leading to possibly decreased fluid intake. He was brought into the hospital, as he again developed weakness and had a syncopal episode after standing up from sitting down. He was able to be lowered to the floor and did not sustain trauma. labs on admission showed hemoglobin in the 9 range the WBC and platelets normal. Patient is somewhat poor historian, and significant amount of history was obtained from the EMR and his daughter. There appears to be no obvious bleeding, diarrhea, nausea or vomiting.no localizing signs or symptoms suggestive of infection Review of Systems Constitutional: Reports fatigue, Reports weakness, Reports weight loss Eyes: denies blurred vision, denies pain Ears: deny: decreased hearing, ear discharge, earache, tinnitus Ears, nose, mouth and throat: Denies headache, Denies sore throat Cardiovascular: Reports dyspnea on exertion Respiratory: Reports as per HPI Gastrointestinal: Reports as per HPI Genitourinary: Reports as per HPI Musculoskeletal: Reports muscle weakness Integumentary: Denies pruritus, Denies rash Neurological: Reports as per HPI, Reports syncope, Reports weakness Psychiatric: Reports difficulty concentrating Endocrine: Reports fatigue, Reports weight change Hematologic/Lymphatic: Reports as per HPI Past Medical History Past Medical History: Cancer, GERD/Reflux, Hyperlipidemia, Hypertension, Osteoarthritis (OA), Sleep Apnea/CPAP/BIPAP Additional Past Medical History / Comment(s): no problems w/blood sugar since lost >100#, unable to use CPAP, pain & numbness down left arm, left hand numb, lung CA-radiation and chemo 08/17 History of Any Multi-Drug Resistant Organisms: None Reported Past Surgical History: Bariatric Surgery Additional Past Surgical History / Comment(s): sinus surg, gastric sleeve Past Anesthesia/Blood Transfusion Reactions: No Reported Reaction Additional Past Anesthesia/Blood Transfusion Reaction / Comm: mother- had time coming out Past Psychological History: Anxiety, Depression Smoking Status: Former smoker Past Alcohol Use History: None Reported Past Drug Use History: None Reported - Past Family History Sister(s) Family Medical History: Deep Vein Thrombosis (DVT) Medications and Allergies Home Medications Medication Instructions Recorded Confirmed Type Aspirin 81 mg PO DAILY 06/25/17 08/17/20 History Atorvastatin [Lipitor] 20 mg PO DAILY 06/25/17 08/17/20 History Fluticasone Nasal [place] [Flonase 2 sprays EA NOSTRIL DAILY PRN 06/25/17 08/17/20 History Nasal [place]] Ibuprofen 800 mg PO TID PRN 06/25/17 08/17/20 History Multivitamin [Men's Multi-Vitamin] 1 tab PO DAILY 06/25/17 08/17/20 History clonazePAM [KlonoPIN] 1 - 1.5 mg PO TID PRN 06/25/17 08/17/20 History Sertraline [Zoloft] 100 mg PO DAILY 12/02/17 08/17/20 History Codeine Phosphate/Guaifenesin 10 ml PO Q4H PRN 08/17/20 08/17/20 History [Guaifen-Codeine 100-10 mg/5 ml] Cyanocobalamin (Vitamin B-12) 1,000 mcg PO DAILY 08/17/20 08/17/20 History [Vitamin B-12] Famotidine [Pepcid] 20 mg PO DAILY 08/17/20 08/17/20 History Fluticasone/Salmeterol [Advair 1 puff INHALATION RT-BID PRN 08/17/20 08/17/20 History 100-50 Diskus] Gabapentin [Neurontin] 100 mg PO TID 08/17/20 08/17/20 History Prochlorperazine [Compazine] 10 mg PO TID 08/17/20 08/17/20 History ALPRAZolam [Xanax] 0.25 mg PO TID PRN #6 tab 08/18/20 Rx Metoprolol Tartrate [Lopressor] 25 mg PO BID #0 08/18/20 08/17/20 Rx fentaNYL 25MCG/HR PATCH [Duragesic 25 mcg TRANSDERM Q72H 3 Days #3 08/18/20 Rx 25MCG/HR] patch oxyCODONE HCL [OxyIR] 10 mg PO Q6H PRN #10 tab 08/18/20 Rx Allergies Allergy/AdvReac Type Severity Reaction Status Date / Time No Known Allergies Allergy Verified 08/17/20 12:16 Physical Exam Vitals: Vital Signs Temp Pulse Pulse Resp BP BP BP 08/18/20 15:40 97.8 F 95 18 08/18/20 08:00 16 08/18/20 05:51 97.8 F 88 16 134/83 08/17/20 21:00 16 08/17/20 20:55 97.8 F 98 16 125/88 08/17/20 19:59 139/99 08/17/20 19:29 78 20 96/71 BP Pulse Ox 08/18/20 15:40 125/84 95 08/18/20 08:00 08/18/20 05:51 95 08/17/20 21:00 08/17/20 20:55 95 08/17/20 19:59 08/17/20 19:29 97 Intake and Output 08/18/20 08/18/20 08/18/20 06:59 14:59 22:59 Intake Total 600 Output Total 35 Balance 565 Intake: Intake, IV Titration 600 Amount Sodium Chloride 0.9% 1, 600 000 ml @ 100 mls/hr IV . Q10H ONE Rx#:[id number] Output: Urine 35 - Constitutional General appearance: no acute distress - EENT Eyes: EOMI, PERRLA ENT: hearing grossly normal, normal oropharynx - Neck Neck: no lymphadenopathy Thyroid: bilateral: normal size - Respiratory Respiratory: bilateral: diminished - Cardiovascular Rhythm: regular Heart sounds: normal: S1, S2 - Gastrointestinal ill-defined area of masslike induration in the right upper quadrant General gastrointestinal: soft - Integumentary right upper quadrant findings as noted above, with post treatment hyperpigmentation - Neurologic Neurologic: CNII-XII intact - Musculoskeletal Musculoskeletal: generalized weakness, strength equal bilaterally - Psychiatric Psychiatric: A&O x's 3, appropriate affect Results CBC & Chem 7: 08/18/20 04:24 08/18/20 04:24 Labs: Abnormal Lab Results - Last 24 Hours (Table) 08/18/20 08/18/20 Range/Units 04:24 04:24 RBC 3.51 L (4.30-5.90) m/uL Hgb 9.4 L (13.0-17.5) gm/dL Hct 30.4 L (39.0-53.0) % MCHC 30.9 L (31.0-37.0) g/dL RDW 16.2 H (11.5-15.5) % Plt Count 140 L (150-450) k/uL Lymphocytes # 0.8 L (1.0-4.8) k/uL Glucose 151 H (70-110) mg/dL Iron 23 L (65-175) ug/dL % Saturation 9.83 L (15.00-50.00) Comments: swallow study report reviewed Chest x-ray: report reviewed Assessment and Plan (1) Syncope Narrative/Plan: this appears to be related to orthostatic hypotension. This had been an ongoing issue even as an outpatient. The patient fortunately did not sustain any significant trauma. He is improved since admission with hydration. - The patient has had part of his antihypertensive regimen held by Dr. Gomez. He was on metoprolol as an outpatient. It was discussed with him and his family, that blood pressure can be further lowered by tulalip chemotherapy which he is receiving. He'll therefore need further adjustment of his antihypertensive regimen. They were advised follow-up with cardiology but have not done so, so far. This was discussed with the admitting service and it was recommended that the patient have cardiology evaluation and adjustment of his antihypertensive regimen prior to discharge. Consult was placed for the same. - The patient had a PICC line placed this admission. He will receive IV hydration as an outpatient through palliative care. His daughter, who is a RN, was advised about monitoring him for any evidence of development of fluid overload Status: Acute Code(s): R55 - SYNCOPE AND COLLAPSE SNOMED Code(s): 603089734 (2) Orthostatic hypotension Narrative/Plan: as above. at this time effect of medication plus chemotherapy is much more likely to be the cause. The daughter was concerned about dehydration. However his BUN creatinine ratio is markedly lower than 20. Status: Acute Code(s): I95.1 - ORTHOSTATIC HYPOTENSION SNOMED Code(s): 41044232 (3) Non-small cell carcinoma of right lung, stage 4 Narrative/Plan: prostate and therapeutic circumstances as described. The patient has achieved relief of symptoms related to the metastatic right abdominal wall mass with radiation, and pain medications. They had opted to delay systemic therapy, but did subsequently started and he is now status post 1 cycle. Other than the blood pressure issues, he appears to have tolerated systemic chemotherapy reasonably well. Cycle 2 was delayed because of hypertension, due to which she was also lost about the hospital. Case was discussed with nursing, and his next cycle will be rescheduled to next week. Status: Acute Code(s): C34.91 - MALIGNANT NEOPLASM OF UNSP PART OF RIGHT BRONCHUS OR LUNG SNOMED Code(s): 964419896 Plan: fentanyl dosing was decreased to 25 g during this admission. A new prescription for the same, as well as a renewed prescription for his Oxy INR was electronically sent in to his pharmacy
--- NOTE | 2020-08-25 17:55 | P.DS ---
Providers Date of admission: 08/17/20 14:34 Expected date of discharge: 08/18/20 Attending physician: Jennifer López Consults: 08/17/20 14:11 Consult Physician Urgent Consulting Provider: Hilario Gomez Consult Reason/Comments: Stage IV lung cancer Do you want consulting provider notified?: Yes 08/18/20 14:40 Consult Physician Stat Consulting Provider: Lissette Antonio Consult Reason/Comments: medication adjustments/ hypotension/ known to patient Do you want consulting provider notified?: Yes Primary care physician: Hilario Gomez Hospital Course: Discharge diagnosis Near syncopal episode due to orthostatic hypotension and volume depletion as well as narcotic pain medication use and chemotherapy.. Decrease oral intake and lack of appetite and difficulty swallowing. Mild Hypovolemic hyponatremia Anemia of chronic disease Lung cancer metastatic status post radiation and supposed to get chemotherapy on 08/17/2020 Hypertension currently hypotensive GERD Osteoarthritis Hyperlipidemia Obstructive sleep apnea not on CPAP Anxiety/depression Previous history of smoking DVT prophylaxis and GI prophylaxis. Hospital course Patient is a 75-year-old male with a known history of metastatic lung cancer, status post radiation supposed to get chemotherapy today, hypertension, hyperlipidemia, osteoarthritis, obstructive sleep apnea, anxiety/depression previous history of smoking was brought to the hospital by family due to dizziness and near syncopal episode. Patient states that she almost passed out. Denied any loss of consciousness. Patient has been having nausea and not eating well due to lack of appetite. Patient also has trouble swallowing liquids and does not take a lot of fluids. No complaints of chest pain or shortness of the. No fever no chills. None complains of vomiting. No abdominal pain or diarrhea. Chest x-ray showed right patchy perihilar and basilar airspace opacities suggestive of atelectasis or developing pneumonia. There is prominent widening of the mediastinum. This is likely due to patient's known right hilar mass. EKG showed sinus rhythm with first-degree AV block. Vitals on admission blood pressure 87/62 pulse ox 90% on room air and pulse 98 and respirations 18. Patient has been afebrile. Patient was given 2.5 l fluid bolus in the ER. Laboratory data showed WBC 7.2 hemoglobin 9.8 and RDW 16 and platelets 160 INR 1.2 Sodium 135 potassium 4.0 chloride 103 BUN 11 creatinine 0.97 blood sugar is 212 albumin 2.7 troponin x1 - and liver enzymes are not elevated. Patient is orthostatic positive on admission. Patient was continued on IV hydration with normal saline and monitor electrolytes and renal function. Did blood pressure medications. Continue with breathing treatment and other home medications. Symptomatic management for nausea. Patient did improve clinically. Blood pressure improved as well. Outpatient IV hydration is being arranged. Denied any complaints of dizziness or lightheadedness. Discussed with his daughter and all questions were answered.. Patient is being discharged home today.. PHYSICAL EXAMINATION: Patient is lying in the bed comfortably, no acute distress, awake alert and oriented.. HEENT: Normocephalic. Neck is supple. Pupils reactive. Nostrils clear. Oral cavity is moist. Neck reveals no JVD, carotid bruits, or thyromegaly. CHEST EXAMINATION: Trachea is central. Symmetrical expansion. .Lung kilpatrick clear to auscultation and percussion. CARDIAC: Normal S1, S2 with no gallops. No murmurs ABDOMEN: Soft. Bowel sounds normal. No organomegaly. No abdominal bruits. Extremities: reveal no edema. No clubbing or cyanosis Neurologically awake, alert, oriented x3 with well-coordinated movements. No focal deficits noted Skin: No rash or skin lesions. Psychiatric: Coperative. Could not be assessed completely. Musculoskeletal: No joint swelling or deformity. Normal range of motion. Vitals: Vital Signs Temp Pulse Pulse Resp BP BP BP 08/18/20 15:40 97.8 F 95 18 08/18/20 08:00 16 08/18/20 05:51 97.8 F 88 16 134/83 08/17/20 21:00 16 08/17/20 20:55 97.8 F 98 16 125/88 08/17/20 19:59 139/99 08/17/20 19:29 78 20 96/71 BP Pulse Ox 08/18/20 15:40 125/84 95 08/18/20 08:00 08/18/20 05:51 95 08/17/20 21:00 08/17/20 20:55 95 08/17/20 19:59 08/17/20 19:29 97 Intake and Output 08/18/20 08/18/20 08/18/20 06:59 14:59 22:59 Intake Total 600 Output Total 35 Balance 565 Intake: Intake, IV Titration 600 Amount Sodium Chloride 0.9% 1, 600 000 ml @ 100 mls/hr IV . Q10H ONE Rx#:[id number] Output: Urine 35 Patient Condition at Discharge: Stable Plan - Discharge Summary Discharge Rx Participant: Yes New Discharge Prescriptions: New ALPRAZolam [Xanax] 0.25 mg PO TID PRN #6 tab PRN Reason: Anxiety fentaNYL 25MCG/HR PATCH [Duragesic 25MCG/HR] 25 mcg TRANSDERM Q72H 3 Days #3 patch Continue Ibuprofen 800 mg PO TID PRN PRN Reason: Pain Aspirin 81 mg PO DAILY clonazePAM [KlonoPIN] 1 - 1.5 mg PO TID PRN PRN Reason: Anxiety Multivitamin [Men's Multi-Vitamin] 1 tab PO DAILY Fluticasone Nasal [place] [Flonase Nasal [place]] 2 sprays EA NOSTRIL DAILY PRN PRN Reason: Allergy Symptoms Atorvastatin [Lipitor] 20 mg PO DAILY Sertraline [Zoloft] 100 mg PO DAILY Codeine Phosphate/Guaifenesin [Guaifen-Codeine 100-10 mg/5 ml] 10 ml PO Q4H PRN PRN Reason: Cough Fluticasone/Salmeterol [Advair 100-50 Diskus] 1 puff INHALATION RT-BID PRN PRN Reason: Shortness Of Breath Cyanocobalamin (Vitamin B-12) [Vitamin B-12] 1,000 mcg PO DAILY oxyCODONE HCL [OxyIR] 10 mg PO Q6H PRN #10 tab PRN Reason: Pain Prochlorperazine [Compazine] 10 mg PO TID Gabapentin [Neurontin] 100 mg PO TID Famotidine [Pepcid] 20 mg PO DAILY Metoprolol Tartrate [Lopressor] 25 mg PO BID #0 Discontinued fentaNYL 50MCG/HR PATCH [Duragesic 50MCG/HR] 1 patch TRANSDERM Q72H Discharge Medication List Aspirin 81 mg PO DAILY 06/25/17 [History] Atorvastatin [Lipitor] 20 mg PO DAILY 06/25/17 [History] Fluticasone Nasal [place] [Flonase Nasal [place]] 2 sprays EA NOSTRIL DAILY PRN 06/25/17 [History] Ibuprofen 800 mg PO TID PRN 06/25/17 [History] Multivitamin [Men's Multi-Vitamin] 1 tab PO DAILY 06/25/17 [History] clonazePAM [KlonoPIN] 1 - 1.5 mg PO TID PRN 06/25/17 [History] Sertraline [Zoloft] 100 mg PO DAILY 12/02/17 [History] Codeine Phosphate/Guaifenesin [Guaifen-Codeine 100-10 mg/5 ml] 10 ml PO Q4H PRN 08/17/20 [History] Cyanocobalamin (Vitamin B-12) [Vitamin B-12] 1,000 mcg PO DAILY 08/17/20 [History] Famotidine [Pepcid] 20 mg PO DAILY 08/17/20 [History] Fluticasone/Salmeterol [Advair 100-50 Diskus] 1 puff INHALATION RT-BID PRN 08/17/20 [History] Gabapentin [Neurontin] 100 mg PO TID 08/17/20 [History] Prochlorperazine [Compazine] 10 mg PO TID 08/17/20 [History] ALPRAZolam [Xanax] 0.25 mg PO TID PRN #6 tab 08/18/20 [Rx] Metoprolol Tartrate [Lopressor] 25 mg PO BID #0 08/18/20 [Rx] fentaNYL 25MCG/HR PATCH [Duragesic 25MCG/HR] 25 mcg TRANSDERM Q72H 3 Days #3 patch 08/18/20 [Rx] oxyCODONE HCL [OxyIR] 10 mg PO Q6H PRN #10 tab 08/18/20 [Rx] Follow up Appointment(s)/Referral(s): [facility], [NON-STAFF] - 1 Week [facility], [REFERRING] - 1 Week Hilario Gomez MD [Primary Care Provider] - 08/30/20 11:15 am Patient Instructions/Handouts: Hypotension (DC) Discharge Disposition: HOME WITH HOME HEALTH SERVICES
== END 2020-08-18 16:59 | disposition home health service (06) ==
LOC: EC 10:40 → 5NMEDONC 14:34
PROVIDERS: ADMIT Internal Medicine; ATTEND Internal Medicine
DX: I95.1 Orthostatic hypotension (principal); E86.1 Hypovolemia; E87.1 Hypo-osmolality and hyponatremia; C34.91 Malignant neoplasm of unspecified part of right bronchus or lung; D63.8 Anemia in other chronic diseases classified elsewhere; E78.5 Hyperlipidemia, unspecified; F32.9 Major depressive disorder, single episode, unspecified; R63.0 Anorexia; F41.9 Anxiety disorder, unspecified; G47.33 Obstructive sleep apnea (adult) (pediatric); M19.90 Unspecified osteoarthritis, unspecified site; I10 Essential (primary) hypertension; K21.9 Gastro-esophageal reflux disease without esophagitis; R13.10 Dysphagia, unspecified; I44.0 Atrioventricular block, first degree; Z79.82 Long term (current) use of aspirin; Z79.2 Long term (current) use of antibiotics; Z79.899 Other long term (current) drug therapy; Z86.16 Personal history of COVID-19; Z98.84 Bariatric surgery status; Z87.891 Personal history of nicotine dependence; Z90.49 Acquired absence of other specified parts of digestive tract; Z92.3 Personal history of irradiation; Z92.21 Personal history of antineoplastic chemotherapy; Z83.2 Family history of diseases of the blood and blood-forming organs and certain disorders involving the immune mechanism
CPT/HCPCS: 96361 ×2; 96360; 99285; 36415; 93005; 92610; 92611; 36573; 80053; 80048; 83540; 83550; 83735; 84484; 85025 ×2; 85610; 85730; 74230; 71046; G0378 ×2; C1751; C1769; S0183 ×2; J1644

== ENCOUNTER → 2020-08-25 | Outpatient (CLI) | payer MEDICARE, BC | END | disposition home or self-care (01) ==